=== PATIENT | female | born 1965 | race Caucasian/White ===

== ENCOUNTER → 2020-05-14 16:07 | Outpatient (CLI) | payer BC, SELFPAY ==
--- NOTE | ~2020-05-14 | MM_ITS ---
EXAMINATION: MM screening lana BI w carroll HISTORY: Screening mammogram TECHNIQUE: Craniocaudal and mediolateral oblique 3-D tomosynthesis images were obtained and synthetic 2-D images were generated. CAD analysis was submitted and interpreted. COMPARISON: 04/25/2019, 120 , 120 bilateral digital screening mammogram examinations BREAST PARENCHYMAL COMPOSITION: There are scattered areas of fibroglandular density. FINDINGS: Approximately 13 x 22 mm low density circumscribed opacity with halo sign in central inner lateral right breast, likely a benign cyst (MLO carroll image 30/85; craniocaudal carroll image 26/73). T here is no evidence of suspicious mass, calcification, or architectural distortion to suggest maligna ncy in either breast. There has been no suspicious interval change. IMPRESSION: 1. No mammographic evidence of malignancy. 2. Recommend routine screening mammography in one year. BI-RADS Category 2: Benign Reviewed, dictated and finalized at location A. T UTILITY PERSON
== END ==
PROVIDERS: Visit Provider Nurse Practitioner
DX: Z12.31 Encounter for screening mammogram for malignant neoplasm of breast (principal)
CPT/HCPCS: 77063; 77067

== ENCOUNTER → 2021-04-07 10:56 | Outpatient (CLI) | payer BC, SELFPAY ==
--- NOTE | ~2021-04-07 | DEXA_ITS ---
Bone Density Report Name: RICHARD TAMEZ Age: 55 Sex: Female Ethnicity: White Date of : 1965 Indication: postmenopausal; screening for osteoporosis; Referring Provider: JOY, ALEXUS Study: Bone densitometry was performed. Exam Date: April 07, 2021 Accession number: [id number] Bone Density: Region BMD T-score Z-score Classification AP Spine (L1-L4) 0.908 -1.3 -0.1 Osteopenia Femoral Neck (Left) 0.779 -0.6 0.5 Normal Total Hip (Left) 0.967 0.2 0.9 Normal Femoral Neck (Right) 0.749 -0.9 0.2 Normal Total Hip (Right) 0.908 -0.3 0.4 Normal Total Hip Mean 0.938 -0.1 0.7 Normal World Health Organization criteria for BMD impression classify patients as: Normal (T-score at or above -1.0), Osteopenia (T-score between -1.0 and -2.5), or Osteoporosis (T-score at or below -2.5). 10-year Fracture Risk(1): Major Osteoporotic Fracture 5.9% Hip Fracture 0.3% Reported Risk Factors: [place] (), Neck BMD=0.749, BMI=25.1 (1) FRAX(R) Version 3.08. Fracture probability calculated for an untreated patient. Fracture probability may be lower if the patient has received treatment. Previous Exams: Region Exam Age BMD T-score BMD Change BMD Change Date g/cm2 vs Baseline vs Previous AP Spine(L1-L4) 04/07/2021 55 0.908 -1.3 -0.075 -0.075 04/17/2017 51 0.983 -0.6 Total Hip(Left) 04/07/2021 55 0.967 0.2 -0.054 -0.054 04/17/2017 51 1.021 0.6 Total Hip(Right) 04/07/2021 55 0.908 -0.3 -0.005 -0.005 04/17/2017 51 0.913 -0.2 *Denotes significance at 95% confidence level, LSC for AP Spine = 0.022 g/cm2, LSC for Total Hip = 0.027 g/cm2 Clinical Information Provided by Patient: Has used the following medications: Vitamin D, Calcium Patient maximum height was 71.5 Menopause Age: 44 Drinks caffeinated beverages Onset of menses at age 16 Number of children 1 Impression: The patient has low bone mass, based on the Total Spine T-score. The patient has an estimated ten-year risk of hip fracture of 0.3% and an estimated ten-year risk of major fracture of 5.9%, based on the WHO FRAX algorithm. No significant bone loss was observed. Discussion: BONE DENSITY IS LOW AT ONE OR MORE SKELETAL SITES. This patient's lowest T-score is low at one or more skeletal sites. It meets the World Health Organization's (WHO) criteria for ?low bone mass? (T-score between -1.0 and -2.5).
== END ==
PROVIDERS: Visit Provider Nurse Practitioner
DX: Z78.0 Asymptomatic menopausal state (principal); M85.88 Other specified disorders of bone density and structure, other site
CPT/HCPCS: 77080

== ENCOUNTER → 2021-05-27 14:06 | Outpatient (CLI) | payer BC, SELFPAY ==
--- NOTE | ~2021-05-27 | MM_ITS ---
EXAMINATION: MM screening lana BI w carroll HISTORY: Screening mammogram TECHNIQUE: Craniocaudal and mediolateral oblique 3-D tomosynthesis images were obtained and synthetic 2-D images were generated. CAD analysis was submitted and interpreted. COMPARISON: May 14, 2020, April 25, 2019, April 19, 2018 bilateral screening mammogram exami nations BREAST PARENCHYMAL COMPOSITION: There are scattered areas of fibroglandular density. FINDINGS: There is a circumscribed approximately 14 x 22 mm low-density opacity with halo, consistent with a cyst in the lateral mid right breast at mid depth. Occasional bilateral benign calcifications. There is no evidence of suspicious mass, calcification, or architectural distortion to suggest malign brice in either breast. There has been no suspicious interval change. IMPRESSION: 1. No mammographic evidence of malignancy. 2. Recommend routine screening mammography in one year. BI-RADS Category 2: Benign finding(s). Reviewed, dictated and finalized at location A. E EXAMINER
== END ==
PROVIDERS: Visit Provider Nurse Practitioner
DX: Z12.31 Encounter for screening mammogram for malignant neoplasm of breast (principal)
CPT/HCPCS: 77063; 77067

== ENCOUNTER 2022-06-26 13:15 | Emergency (ER) | payer BC, SELFPAY ==
--- NOTE | 2022-06-26 13:25 | ED.URI ---
HPI - URI/Sore Throat General Chief Complaint: Upper Respiratory Infection Stated Complaint: Sore Throat,Congestion Time Seen by Provider: 06/26/22 13:25 Source: patient Mode of arrival: ambulatory Limitations: no limitations History of Present Illness HPI Narrative: Patient is a 56-year-old female that presents with sore throat, drainage since Monday along with lymph node swelling. Also having body aches it. No cough, congestion, fever, chills. Reports pain is an 8/10. Has taken Excedrin in Mucinex with little to no relief Related Data Home Medications Medication Instructions Recorded Confirmed ergocalciferol (vitamin D2) 1,250 50,000 unit PO WEEKLY 06/26/22 06/26/22 mcg (50,000 unit) capsule escitalopram oxalate 20 mg tablet 20 mg PO DAILY 06/26/22 06/26/22 triamterene 37.5 1 cap PO DAILY 06/26/22 06/26/22 mg-hydrochlorothiazide 25 mg capsule Allergies Allergy/AdvReac Type Severity Reaction Status Date / Time No Known Allergies Allergy Verified 06/26/22 13:23 Review of Systems Review of Systems: All systems reviewed & are unremarkable except as noted in HPI and below Constitutional: Constitutional: Reports body ache(s), Denies fever(s), Denies headache(s), Denies malaise and Denies weakness Eyes: Eyes: Denies loss of vision ENT: Denies otalgia, Denies headache(s), Reports nasal congestion, Reports neck pain, Denies sinus pain and Reports sore throat Cardiovascular: Cardiovascular: Denies chest pain, Denies irregular heart rhythm and Denies dyspnea Respiratory: Respiratory: Denies cough and Denies dyspnea Gastrointestinal: Gastrointestinal: Denies abdominal pain, Denies melena, Denies hematochezia, Denies diarrhea, Denies nausea and Denies vomiting Musculoskeletal: Musculoskeletal: Denies back pain, Denies myalgias and Denies arthralgias Integumentary/Breasts: Skin/Breast: Denies pruritus and Denies rash Neurologic: Denies headache(s), Denies loss of vision and Denies weakness Psychiatric: Psychiatric: Reports no additional psychiatric complaints PMFSH Comments At time of signature, agree with nursing past medical, surgical, social and family history. There is no relevant family history pertinent to the presenting complaint. Exam Const: General: cooperative, healthy appearing, comfortable, no acute distress and well nourished Nutritional Appearance: well nourished Orientation/consciousness: patient oriented x3 Limitations: no limitations HENMT: Head: normal to inspection, normocephalic and atraumatic Ears: hearing grossly normal bilaterally, external ears normal and TM's normal bilaterally Face/Nose/Sinus: Normal external nose present, Normal nares present, Normal nasal mucous membranes and turbinates present, Normal septum present, normal facial exam, sinuses nontender and face symmetric Face and sinus: normal facial exam, sinuses nontender and face symmetric Mouth: Yes Normal oral and palatal mucosa present, Yes lip normal and Yes moist mucous membranes Teeth and gingiva: dentition normal Throat: uvula midline, abnormal tonsil bilateral erythema and hypertrophy 2+, posterior oropharynx abnormal edema, erythema and exudates and postnasal drainage Eyes: General: appearance normal, both eyes and all related structures Alignment and Position: alignment normal and position normal Periorbital: periorbital findings normal Eyelids: eyelids normal Pupils: Equal, round and reactive pupils present Neck: Neck: normal visual inspection, full ROM, no lymphadenopathy and supple Chest: Chest palpation & inspection: normal inspection of the chest and normal palpation of entire chest wall Resp: Effort & Inspection: normal respiratory effort and able to speak in complete sentences Auscultation: clear to auscultation bilaterally, no crackles, no rales, no rhonchi and no wheezes Cardio: Rate: regular rate Rhythm: regular rhythm Heart sounds: S1 normal heart sound present and S2 normal heart sound presen
[2022-06-26 13:31] VITALS: BP 124/83; PULSE 72; RESP 18; TEMP 36.1; O2SAT 96
== END 2022-06-26 13:55 | disposition home or self-care (01) ==
PROVIDERS: Emergency Provider Nurse Practitioner Family
DX: J02.0 Streptococcal pharyngitis (principal)
CPT/HCPCS: 87880; 99213; G0463

== ENCOUNTER → 2022-08-18 10:32 | Outpatient (CLI) | payer BC, SELFPAY ==
--- NOTE | ~2022-08-18 | MM_ITS ---
EXAMINATION: MM screening [facility] BI w carroll HISTORY: Screening mammogram TECHNIQUE: Craniocaudal and mediolateral oblique 3-D tomosynthesis images were obtained and synthetic 2-D images were generated. CAD analysis was submitted and interpreted. COMPARISON: 05/27/2021, 05/14/2020, 04/25/2019 BREAST PARENCHYMAL COMPOSITION: There are scattered areas of fibroglandular density. FINDINGS: A chronic, obscured, low density mass in the middle third of the outer right breast is stab le on multiple prior examinations, consistent with a benign finding. No suspicious mass, calcificatio n, or architectural distortion are identified in either breast to suggest malignancy. There has been no suspicious interval change. IMPRESSION: 1. No mammographic evidence of malignancy. 2. Recommend routine screening mammography in one year. BI-RADS Category 2: Benign finding(s). Reviewed, dictated and finalized at location A.
== END ==
PROVIDERS: PCP Nurse Practitioner; Visit Provider Nurse Practitioner
DX: Z12.31 Encounter for screening mammogram for malignant neoplasm of breast (principal)
CPT/HCPCS: 77063; 77067

== ENCOUNTER 2023-08-21 10:43 | Outpatient (CLI) | payer BC, SELFPAY ==
--- NOTE | ~2023-08-21 | MM_ITS ---
EXAMINATION: MM screening lana BI w carroll HISTORY: Screening TECHNIQUE: Craniocaudal and mediolateral oblique 3-D tomosynthesis images were obtained and synthetic 2-D images were generated. CAD analysis was submitted and interpreted. COMPARISON: Comparison to multiple prior studies sequentially, with oldest reviewed study dated 04/17. BREAST PARENCHYMAL COMPOSITION: Not dense: There are scattered areas of fibroglandular density. FINDINGS: There is no evidence of suspicious mass, calcification, or architectural distortion to sugg est malignancy in either breast. There has been no suspicious interval change. IMPRESSION: 1. No mammographic evidence of malignancy. 2. Recommend routine screening mammography in one year. BI-RADS Category 1: Negative Reviewed, dictated and finalized at location A.
== END 2023-08-21 10:44 ==
PROVIDERS: Visit Provider Nurse Practitioner
DX: Z12.31 Encounter for screening mammogram for malignant neoplasm of breast (principal)
CPT/HCPCS: 77063; 77067

== ENCOUNTER 2024-01-26 07:24 | Outpatient (CLI) | payer BC, SELFPAY ==
--- NOTE | ~2024-01-26 | DEXA_ITS ---
Bone Density Report Name: RICHARD TAMEZ Age: 58 Sex: Female Ethnicity: White Date of : 1965 Indication: postmenopausal; screening for osteoporosis; Referring Provider: JOY, ALEXUS Study: Bone densitometry was performed. Exam Date: January 26, 2024 Accession number: [id number] Bone Density: Region BMD T-score Z-score Classification AP Spine(L1-L4) 0.882 -1.5 -0.2 Osteopenia Femoral Neck (Left) 0.749 -0.9 0.3 Normal Total Hip (Left) 0.918 -0.2 0.7 Normal Femoral Neck (Right) 0.717 -1.2 0.0 Osteopenia Total Hip (Right) 0.882 -0.5 0.4 Normal Total Hip Mean 0.900 -0.4 0.6 Normal World Health Organization criteria for BMD impression classify patients as: Normal (T-score at or above -1.0), Osteopenia (T-score between -1.0 and -2.5), or Osteoporosis (T-score at or below -2.5). 10-year Fracture Risk(1): Major Osteoporotic Fracture 6.3% Hip Fracture 0.4% Reported Risk Factors: [place] (), Neck BMD=0.717, BMI=20.8 (1) FRAX(R) Version 3.08. Fracture probability calculated for an untreated patient. Fracture probability may be lower if the patient has received treatment. Clinical Information Provided by Patient: Patient maximum height was 71 Menopause Age: 40 Drinks caffeinated beverages Onset of menses at age 13 Number of children 1 Impression: The patient has low bone mass, based on the Total Spine T-score. The patient has an estimated ten-year risk of hip fracture of 0.4% and an estimated ten-year risk of major fracture of 6.3%, based on the WHO FRAX algorithm. Discussion: BONE DENSITY IS LOW AT ONE OR MORE SKELETAL SITES. This patient's lowest T-score is low at one or more skeletal sites. It meets the World Health Organization's (WHO) criteria for ?low bone mass? (T-score between -1.0 and -2.5). The patient's 10-year risk of fracture as calculated by FRAX is less than the threshold where pharmacological therapy is recommended by the National Osteoporosis Foundation (NOF). However, all treatment decisions require clinical judgment and consideration of individual patient factors, including patient preferences, comorbidities, previous drug use, risk factors not captured in the FRAX model (e.g., frailty, falls, vitamin D deficiency, increased bone turnover, interval significant decline in bone density) and possible under or overestimation of fracture risk by FRAX. The patient should follow a healthful lifestyle (good nutrition with adequate calcium and vitamin D, and appropriate weight-bearing exercise). Follow-Up: Consider repeating this study in 2 to 3 years to reassess this patient's status, or sooner if there is some new clinical indication. Reported by: CARSON on 01/26/2024 7:53:00 AM. Reviewed, dictated and finalized at location A. [facility]PITALMckenzie
== END 2024-01-26 07:25 | disposition home or self-care (01) ==
LOC: ANHIMG 07:25
PROVIDERS: Visit Provider Nurse Practitioner
DX: M81.0 Age-related osteoporosis without current pathological fracture (principal); M85.80 Other specified disorders of bone density and structure, unspecified site
CPT/HCPCS: 77080

== ENCOUNTER 2025-01-20 09:15 | Outpatient (CLI) | payer BC, SELFPAY ==
--- NOTE | ~2025-01-20 | MM_ITS ---
EXAMINATION: MM screening lana BI w carroll HISTORY: Screening TECHNIQUE: Craniocaudal and mediolateral oblique 3-D tomosynthesis images were obtained and synthetic 2-D images were generated. CAD analysis was submitted and interpreted. COMPARISON: Comparison to multiple prior studies sequentially, with oldest reviewed study dated 04/19/2018. BREAST PARENCHYMAL COMPOSITION: Dense: The breasts are heterogeneously dense, which may obscure small masses FINDINGS: There are developing asymmetries in the upper outer quadrant of the right breast, middle third. The left breast is stable without evidence for malignancy. IMPRESSION: 1. Developing right breast asymmetries. 2. Additional mammographic views and possible breast ultrasound are recommended. BI-RADS Category 0: Incomplete: Needs additional imaging evaluation. Reviewed, dictated and finalized at location O. IMPRESSION: 1. Developing right breast asymmetries. 2. Additional mammographic views and possible breast ultrasound are recommended . BI-RADS Category 0: Incomplete: Needs additional imaging evaluation.
== END 2025-01-20 09:16 | disposition home or self-care (01) ==
PROVIDERS: Visit Provider Nurse Practitioner
DX: Z12.31 Encounter for screening mammogram for malignant neoplasm of breast (principal); R92.8 Other abnormal and inconclusive findings on diagnostic imaging of breast
CPT/HCPCS: 77063; 77067

== ENCOUNTER 2025-03-05 10:33 | Outpatient (CLI) | payer BC, SELFPAY ==
--- NOTE | ~2025-03-05 | MMUS_ITS ---
EXAMINATION: US breast RT limited, MM diagnostic lana RT w carroll HISTORY: Additional imaging TECHNIQUE: Craniocaudal and mediolateral oblique 3-D tomosynthesis images were obtained and synthetic 2-D images were generated. CAD analysis was submitted and interpreted. Grayscale sonography over the area(s) of interest with color Doppler if there is a finding. COMPARISON: January 20 BREAST PARENCHYMAL COMPOSITION: Dense: The breasts are heterogeneously dense MAMMOGRAM FINDINGS: 2 circumscribed masses persist in the 9-10 o'clock right breast. There are no suspicious calcifications. No unexplained architectural distortion is seen. There are no skin or nipple abnormalities identified. There is no adenopathy seen on the images submitted. ULTRASOUND FINDINGS: At 9:00, there is an ovoid, circumscribed, heterogeneous mass which contains some hypoechoic portions and some echogenic portions. The maximum dimension is 2.2 cm. It has a parallel orientation. At 10:00, there is a circumscribed, minimally heterogeneous, hypoechoic, ovoid mass with a maximum dimension of 8 mm and a parallel orientation. A similar such mass with maximum dimension of 11 mm is seen at 11:00. These account for the mammographic masses. IMPRESSION: Probably benign-appearing circumscribed masses accounting for the mammographic masses. 6 month follow-up ultrasound only through these regions is recommended. BI-RADS 3 - Probably benign - short-term follow-up is recommended. Reviewed, dictated and finalized at location B. PING AND RECEIVING IMPRESSION: Probably benign-appearing circumscribed masses accounting for the mammographic masses. 6 month follow-up ultrasound only through these regions is recommended. BI-RADS 3 - Probably benign - short-term follow-up is recommended.
--- OUTSIDE RECORDS SUMMARY | 2025-03-05 12:01 | XMS_ITS | Clinical Summary ---
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 017 Active valACYclovir (VALTREX) 1 gram tabletIndications:Annua l physical exam Take 1 Gram by mouth 1 time daily as needed. 017 Active aspirin (ECOTRIN EC) 81 mg Tablet, Delayed Release (E.C.)Indications:Pure hypercholesterolemia Take 81 mg by mouth daily. Active ergocalciferol (VITAMIN D2) 50,000 unit capsule every 7 days. 18/05 020 Active triamterene-hydroCHLORO thiazide (MAXZIDE 25) 37.5-25 mg tabletIndications:Essen tial hypertension Take 0.5 Tablets by mouth daily. 45 Tablet 3 025 Active tiZANidine (ZANAFLEX) 4 mg TabletIndications:Chron ic bilateral low back pain without sciatica TAKE 2 TABLETS NIGHTLY NEEDED FOR SPASM 180 Tablet 3 025 Active acetaminophen (TYLENOL) 325 mg tablet Take 650 mg by mouth every 6 hours as needed. 025 Active magnesium OXIDE (MAG-OX) 400 mg (241.3 mg magnesium) tablet Take 400 mg by mouth daily. 025 Active prochlorperazine maleate (COMPAZINE) 10 mg tablet Take 10 mg by mouth every 8 hours as needed. 025 Active riboflavin, vitamin B2, 100 mg Capsule Take 400 mg by mouth daily. Active tirzepatide, weight loss, (Zepbound) 5 mg/0.5 mL Pen InjectorIndications:Ess ential hypertension,Other hyperlipidemia,Overweig ht (BMI 25.0-29.9) Inject 0.5 mL (5 mg) by subcutaneous injection every 7 days. 6 mL 3 Active atorvastatin (LIPITOR) 40 mg tabletIndications:Other hyperlipidemia Take 1 Tablet (40 mg) by mouth daily at bedtime. 100 Tablet 3 Active tirzepatide, weight loss, (Zepbound) 5 mg/0.5 mL SolutionIndications:Ove rwmonicoght (BMI 25.0-29.9) Inject 0.5 mL (5 mg) by subcutaneous injection every 7 days. 2 mL 4 Active amLODIPine (NORVASC) 2.5 mg tablet Take 2.5 mg by mouth daily at bedtime. Active topiramate (TOPAMAX) 25 mg tablet Take 25 mg by mouth 2 times daily. Active tirzepatide, weight loss, (Zepbound) 5 mg/0.5 mL Pen InjectorIndications:Ess ential hypertension,Other hyperlipidemia,Overweig ht (BMI 25.0-29.9) Inject 5 mg by subcutaneous injection every 7 days. 6 mL 3 025 2024 Disconti nued(Reo rder) atorvastatin (LIPITOR) 40 mg tablet Take 40 mg by mouth daily at bedtime. 025 2024 Disconti nued(Reo rder) Active Problems Problem Noted Date Diagnosed Date Chronic migraine with aura w ithout status migrainosus, not intractable 02/26/2025 Pain and swelling of left knee 03/18/2021 Melanocytic nevi of lower extremity or hip 03/21 Situational mixed anxiety and depressive disorde r 06/18/2012 Other hyperlipidemia 07/13/2011 Essential hypertension 07/13/2011 History of basal cell carcinoma of skin 04/21/19 11 Encounters Date Type Department Care Team Description 02/26/2025 4:00 PM LUMPIA WRAPPER MAKER Video Visit [facility] Primary [facility] [address] [place] [address] Michael Holloway MD Acquired carotid-cavernous sinus fistula (Primary Dx); Essential hypertension; Chronic migraine with aura without status migrainosus, not intractable 02/19/2025 Telephone [facility] [place] [facility] [address] [address] Michael Holloway MD Medication Denial reason 02/18/2025 External Device Data STL ABSTRACTION Provider, Abstract [facility] [address] [place] [address] Michael Holloway MD Other hyperlipidemia (Primary Dx) 02/12/2025 4:00 PM LUMPIA WRAPPER MAKER [facility] [address] [place] [phone] Michael Holloway MD Acquired carotid-cavernous sinus fistula (Primary Dx); Overweight (BMI 25.0-29.9); Essential hypertension; Other hyperlipidemia 02/06/2025 Medication Prior Auth Encounter [facility] Prescription Management Dept [address] [place] [address] [place] [id number] Ashleigh Brooke, PHARMACIST 01/29/2025 External Device Data STL ABSTRACTION Provider, Abstract 01/29/2025 Telephone [facility] [place] [address] [place] [phone] Michael Holloway MD Medication Question 01/21/2025 Orders Only [facility] [place] [address] [facility] [address] [place] [phone] Provider, Abstract from Last 3 Months Immunizations Immunization Administration Dates Next Due (ADACEL/BOOSTRIX)(10 YR UP) TDAP VACCINE, 0.5ML, IM 08/22/2017,07/04/2007 (KALYN) COVID-19 VACCINE - EMERGENCY USE AUTHORIZATION, [id number](PF) 0.5 ML IM SUSP 06/09/2020 (Moderna Bivalent)(6 Mos-5 Y rs Booster) COVID-19 Vaccine - Emergency Use Authorization, MRNA (Pf) 10 Mcg/0.2 Ml Im Susp 12/02/2021 (PFIZER)(12 YR UP) COVID-19 VACCINE - EMERGENCY USE AUTHORIZATION, MRNA, [id number](PF) 30 MCG/0.3 ML IM SUSP 01/23/2021 (TWINRIX)(18 YRS UP) HEPATIT IS A AND HEPATITIS B VACCINE ADULT, 1 ML, IM 12/12/2023 INFLUENZA VACCINE QUADRIVALE NT 6 MOS UP CELL DERIVED PF IM 01/02/2020 INFLUENZA VACCINE QUADRIVALE NT 6 MOS UP PF IM 12/13/2018,12/11/2017 Influenza Seasonal Unspecifi ed Formulation IM 01/04/2023,01/20/2021,01/06/2020,2017 Influenza Seasonal Unspecifi ed Formulation PF IM 12/06/2024 Influenza, Unspecified Formulation 01/16/2020, Family History Medical History Relation Name Comments Diabetes Brothmarvin Gates Jr Heart Disease Father Herbert Hdz Hypertension Mother Mariaelena Hdz Other Mother Mariaelena Hdz Pace Maker Diabetes Sister Mariaelena Relation Name Status Comments Brother Kody Mariscal Alive Father Herbert Hdz (Age 80) Mother Mariaelena Hdz Alive Sister Mariaelena Alive Social History Tobacco Use Types Packs/Day Years Used Date Smoking Tobacco: Never Passive Smoke Exposure: Never Smokeless Tobacco: Never Tobacco Cessation:Counseling Given: Not Answered Alcohol Use Standard Drinks/Week Comments No 0 (1 standard drink = 0.6 oz pur e alcohol) Comments No Sex and Gender Information Value Date Recorded Sex Assigned at Not on file Legal Sex Female 2:57 AM LUMPIA WRAPPER MAKER Gender Identity Not on file Sexual Orientation Not on file 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 [employer] Not on file Not on file Not on file Last Filed Vital Signs Vital Sign Reading Time Taken Comments Blood Pressure 132/80 02/26/2025 3:50 PM LUMPIA WRAPPER MAKER Pulse 62 04/15/2024 1:21 PM LUMPIA WRAPPER MAKER Temperature 36.4 C (97.5 F) 04/15/2024 1:21 PM LUMPIA WRAPPER MAKER Respiratory Rate 14 08/16/2016 8:52 AM CDT Oxygen Saturation 95% 04/15/2024 1:21 PM LUMPIA WRAPPER MAKER Inhaled Oxygen Concentration - - Weight 70.3 kg (155 lb) 02/26/2025 3:50 PM LUMPIA WRAPPER MAKER Height 180.3 cm (5' 11) 02/26/2025 3:50 PM LUMPIA WRAPPER MAKER Body Mass Index 21.62 02/26/2025 3:50 PM LUMPIA WRAPPER MAKER Plan of Treatment Upcoming Encounters Date Type Department Care Team (Late st Contact Info) Description 03/05/2025 2:30 PM LUMPIA WRAPPER MAKER Office Visit [facility] [place] [address] [place] [address] [place] [address] [address] [place] [address] 04/21/2025 1:30 PM LUMPIA WRAPPER MAKER Office Visit [facility] [place] [address] [place] [address] [place] [address] [place] [address] Health Maintenance Due Date Last Done Comments HPV/Cotest (21-29) 1986 HPV/Cotest (30-65) 07/15/1995 FIT-DNA Q 3 years 2010 FIT/FOBT Q 1 year 2010 Flex Sig/CT Colonography Q 5 years 2010 ZOSTER VACCINE (1 of 2) 07/15/2015 HEPATITIS B VACCINES (2 of 3 - Hep B Twinrix 3-dose series) 01/09/2024 12/12/2023 CERVICAL CANCER SCREENING 04/27/2024 PAP SMEAR 04/27/2024 04/27/2021 (Prev iously completed) COVID-19 Vaccine (3 - 2024-2 6 season) 2024 12/02/2021, 01/23/2021, 06/09/2020 BREAST CANCER SCREENING 01/20/2026 01/21/20 25, 08/21/2023, 05/14/2020 DTAP/TDAP/TD VACCINES (3 - T d or Tdap) 08/23/2027 08/22/2017, 07/04/2007 COLORECTAL SCREENING 04/13/2033 04/13/2023, 01/02/20 16 Colorectal Cancer Screening 04/13/2033 Preventative Visit- Commercial Completed 0 04/15/2024, 04/11/2023, 04/12/2022, Additional history exists INFLUENZA VACCINE Completed 12/06/2024, , 12/02/2021, Additional history exists Procedures Procedure Name Priority Date/Time Associated Diagnosis Comments MAMMO SCREENING BILAT Routine 01/20/2025 8:23 AM CDT COLONOSCOPY REPORT Routine 04/13/2023 10 :48 AM LUMPIA WRAPPER MAKER from Last 3 Months or Most Recently Relevant to Health Maintenance Results * MAMMO SCREENING BILAT (01/20/2025 8:23 AM CDT) Anatomical Region Laterality Modality Breast Bilateral Mammography us Abstract Provider MAMMO ORDERABLES Final Result * COLONOSCOPY REPORT (04/13/2023 10:48 AM LUMPIA WRAPPER MAKER) us Abstract Provider GI PROCEDURE ORDERABLES Final Result Performing Organization Address City/State/[facility] Co de Phone Number [facility] CLIA# [id number] [address] from Last 3 Months or Most Recently Relevant to Health Maintenance Insurance [employer] BLUE ACCESS/TRUE BLUE PPO Care Teams 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
--- OUTSIDE RECORDS SUMMARY | 2025-03-05 12:01 | XMS_ITS | Encounter Summary ---
Author Organization [facility] Address [address] [facility] [place] [address] Care Team Providers Care Water Conservation Specialist Name Role Phone Michael Holloway MD Primary Care Pr ovider Reason for Visit * Reason Onset Date Comments MEDICATION REFILL 08/07/2023 Encounter Details Date Type Department Care Team (Late st Contact Info) Description 08/07/2023 Refill [facility] - Dermatology [address] [place] [phone] Jayjay Henson PA-C [address] [facility] [address] [place] [address] MEDICATION REFILL Social History Tobacco Use Types Packs/Day Years Used Date Smoking Tobacco: Never Smokeless Tobacco: Never Comments Unknown Sex and Gender Information Value Date Recorded Sex Assigned at Female 05/18/2021 2:52 PM BRIM WELT SEWING MACHINE OPERATOR Legal Sex Female 5:15 PM BRIM WELT SEWING MACHINE OPERATOR Gender Identity Female 05/18/2021 2:52 PM BRIM WELT SEWING MACHINE OPERATOR Sexual Orientation Straight 05/18/2021 2: 52 PM BRIM WELT SEWING MACHINE OPERATOR documented as of this encounter Miscellaneous Notes * Telephone Encounter - Jayjay Henson PA-C - 08/08/2023 8:29 AM CDT Refill given for HSV flares. Jayjay Henson PA-C * Telephone Encounter - Kelsea Connor - 08/07/2023 3:47 PM CDT LV: 12/09/22 NV: 12/13/23 RTC: 1year Kelsea Connor documented in this encounter Plan of Treatment Upcoming Encounters Date Type Department Care Team (Late st Contact Info) Description 06/26/2025 10:00 AM CDT Office Visit [facility] - Neurology [address] [place] [address], [place] [address] Lyly Gavin APRN-AUTOMOBILE RELOCATION ENGINEER [address] [place] [address] [address] [place] [address] 01/14/2026 1:10 PM CDT Office Visit [facility] - Dermatology [address] [place] [address], [place] [address] Tera Lees MD [address] [place] [address] [address] [place] [phone] documented as of this encounter Visit Diagnoses Diagnosis Herpesviral infection Herpes simplex without mention of complication documented in this encounter Care Teams Water Conservation Specialist Relationship Specialty [place] [address] [facility] [address] [place] [address] PCP - General 03/14/18 documented as of this encounter
--- OUTSIDE RECORDS SUMMARY | 2025-03-05 12:01 | XMS_ITS | Encounter Summary ---
Author Organization [facility] Address [address] [place] [address] Care Team Providers Care Biomed Tech Name Role Phone Michael Holloway MD Primary Care Pr ovider Reason for Visit * Reason Onset Date Comments MEDICATION REFILL 05/17/2023 Encounter Details Date Type Department Care Team (Late st Contact Info) Description 05/17/2023 Refill [facility] - Dermatology [address] [place] [address], [facility] [place] [address] Ashleigh Loyns PA [address] [place] [address] [place] [phone] MEDICATION REFILL Social History Tobacco Use Types Packs/Day Years Used Date Smoking Tobacco: Never Smokeless Tobacco: Never Comments Unknown Sex and Gender Information Value Date Recorded Sex Assigned at Female 05/18/2021 2:52 PM TAPEMAN Legal Sex Female 5:15 PM TAPEMAN Gender Identity Female 05/18/2021 2:52 PM TAPEMAN Sexual Orientation Straight 05/18/2021 2: 52 PM TAPEMAN documented as of this encounter Miscellaneous Notes * Telephone Encounter - Jayjay Henson PA-C - 05/18/2023 1:06 PM CST Refill approved for symptom relief and decreasing length of fever blister breakouts. This is to be taken only at sign of flare. Jayjay Henson PA-C MAN * Telephone Encounter - Kelsea Connor - 05/18/2023 9:52 AM CST LV: 12/09/22 NV: 12/13/23 RTC: 1 year Kelsea Connor MAN documented in this encounter Plan of Treatment Upcoming Encounters Date Type Department Care Team (Late st Contact Info) Description 06/26/2025 10:00 AM CDT Office Visit [facility] - Neurology [address] [place] [address], [place] [address] Lyly Gavin APRN-BOOTH CASHIER [address] [place] [address] [address] [place] [phone] 01/14/2026 1:10 PM CDT Office Visit [facility] - Dermatology [address] [place] [address], [place] [address] Tera Lees MD [address] [place] [address] [address] [place] [phone] documented as of this encounter Visit Diagnoses Diagnosis Herpesviral infection Herpes simplex without mention of complication documented in this encounter Care Teams Biomed Tech Relationship Specialty [place] [address] [facility] [address] [place] [address] PCP - General 03/14/18 documented as of this encounter
--- OUTSIDE RECORDS SUMMARY | 2025-03-05 12:01 | XMS_ITS | Encounter Summary ---
Author Organization [facility] Address [address] [place] [address] Care Team Providers Care Interline Clerk Name Role Phone Michael Holloway MD Primary Care Pr ovider Encounter Details Date Type Department Care Team (Late st Contact Info) Description 07/09/2003 Outpatient Historical [facility] Maternal and Ground Floor [address] [facility] [address] [facility] [place] [address] Bogdan Rangel MD NO ADDRESS ON FILE Social History Tobacco Use Types Packs/Day Years Used Date Smoking Tobacco: Never Assessed Comments Unknown Sex and Gender Information Value Date Recorded Sex Assigned at Not on file Legal Sex Female 2:57 AM WELT BUTTER HAND Gender Identity Not on file Sexual Orientation Not on file documented as of this encounter Plan of Treatment Upcoming Encounters Date Type Department Care Team (Late st Contact Info) Description 03/05/2025 2:30 PM WELT BUTTER HAND Office Visit [facility] Care Michaelle Santos [facility] [address] [place] [address] [place] [address] [address] [facility] [address] [place] [address] 04/21/2025 1:30 PM WELT BUTTER HAND Office Visit [facility] Care [place] [facility] [address] [place] [address] [place] [address] [facility] [address] [place] [address] documented as of this encounter Visit Diagnoses Not on filedocumented in this encounter Care Teams Interline Clerk Relationship Specialty Start [place] [address] [facility] [address] [place] [phone] PCP - General Internal Medicine 08/22/17 documented as of this encounter
--- OUTSIDE RECORDS SUMMARY | 2025-03-05 12:01 | XMS_ITS | Encounter Summary ---
Author Organization [facility] Address [address] [place] [address] Care Team Providers Care Noodle Maker Name Role Phone Michael Holloway MD Primary Care Pr ovider Reason for Visit * Reason Comments Medication Question Encounter Details Date Type Department Care Team (Late st Contact Info) Description 01/29/2025 Telephone [facility] Internal Medicine - [place] [address] [facility] [address] [place] [address] [place] [address] [facility] [address] [address] [facility] [place] [address] Medication Question Social History Tobacco Use Types Packs/Day Years Used Date Smoking Tobacco: Never Passive Smoke Exposure: Never Smokeless Tobacco: Never Alcohol Use Standard Drinks/Week Comments No 0 (1 standard drink = 0.6 oz pur e alcohol) Comments No Sex and Gender Information Value Date Recorded Sex Assigned at Not on file Legal Sex Female 2:57 AM CLAY PIGEON LOADER Gender Identity Not on file Sexual Orientation Not on file Occupation Industry Job Start Date Job End Date [employer] - [employer] Not on file Not on file Not on file documented as of this encounter Miscellaneous Notes * Telephone Encounter - Malou Rahman, A - 01/29/2025 1:46 PM CDT Copied from [facility] #[id number]. Topic: Medication Request >> Jan 29, 2025 1:44 PM Malou Haley wrote: Pharmacy Calling: [facility] Contact Name: [id number] - [place], [place] - [address] [facility] [address] [facility] [address] Pharmacy Number: [phone] Medication: Zepound. Patient is wanting to use coupon for medication and pharmacy has questions about Coding and BMI that will qualify her to be able to use the coupon Call Notes: Caller has questions concerning a prescription. Is the patient there at the pharmacy waiting to fill a prescription? No Is there an encounter open? No documented in this encounter Plan of Treatment Upcoming Encounters Date Type Department Care Team (Late st Contact Info) Description 03/05/2025 2:30 PM CLAY PIGEON LOADER Office Visit [facility] Primary Care [place] [facility] [address] [place] [address] [place] [id number] [place] [address] [address] [place] [address] 04/21/2025 1:30 PM CLAY PIGEON LOADER Office Visit [facility] [place] [facility] [address] [place] [address] [place] [address] [facility] [address] [place] [address] documented as of this encounter Visit Diagnoses Not on filedocumented in this encounter Care Teams Noodle Maker Relationship Specialty [place] [address] [facility] [address] [place] [address] PCP - General Internal Medicine 08/22/17 documented as of this encounter
--- OUTSIDE RECORDS SUMMARY | 2025-03-05 12:01 | XMS_ITS | Clinical Summary ---
Author Organization [facility] Address [address] [address] Care Team Providers Care Book Jacket Cover Machine Operator Name Role Phone Michael Holloway MD Primary Care Pr ovider Source Comments [facility],non-owned Affiliates and Associated Physician Practices is amultiple site organization consisting of ambulatory clinics and hospital sitesin [place], [place], [place] and [place]. This disclosure is being madepursuant to the Care Everywhere program and may not contain all information available regarding this patient. Last updated 17.[facility] Allergies No known active allergies Medications * Be aware that medications may not be up to date on this document. Alwaysverify current medications with the patient. escitalopram (LEXAPRO) 20 MG tablet 02/04/20 16 Active aspirin (ASPIRIN) 81 MG chew tablet Take 1 (one) tablet by mouth once daily Active tiZANidine (Zanaflex) 4 MG tablet Take 2 (two) tablets by mouth once daily as needed 05/26/19 22 Active valACYclovir (Valtrex) 1 GM tabletIndication s:Herpesviral infection TAKE 2 TABLETS BY MOUTH AT ONSET OF SYMPTOMS AND REPEAT DOSE IN 12 HOURS 8 tablet 6 01/16/20 25 Active acetaminophen (Tylenol) 325 MG tabletIndication s:Pain Take 2 (two) tablets by mouth every 6 hours as needed Maximum allowable Acetaminophen amount = 4 Grams (4000 mg) / 24 hours. Reasons: Pain 02/04/20 25 Active atorvastatin (Lipitor) 40 MG tablet Take 1 (one) tablet by mouth at bedtime 30 tablet 02/04/20 25 Active magnesium oxide (Mag-Ox) 400 MG tablet Take 1 (one) tablet by mouth once daily 90 tablet 3 02/05/20 25 Active Riboflavin 100 MG Take 4 (four) capsules by mouth once daily Please take 400mg (4 capsules) daily 90 capsule 3 02/05/20 25 Active prochlorperazine (Compazine) 10 MG tablet Take 1 (one) tablet by mouth every 8 hours as needed for Nausea/Vomiting 25 tablet 02/05/20 25 Active Zepbound 5 MG/0.5ML injection 5 (five) mg every 7 days (once a week) UNDER THE SKIN 12/11/19 25 Active topiramate (Topamax) 25 MG tabletIndication s:Intractable episodic tension-type headache Take 1 (one) tablet by mouth 2 times daily 180 tablet 4 02/27/20 25 Active amLODIPine (Norvasc) 2.5 MG tabletIndication s:Elevated BP without diagnosis of hypertension Take 1 (one) tablet by mouth at bedtime 90 tablet 4 02/27/20 25 Active naproxen (NAPROSYN) 500 MG tablet TK 1 T PO BID WC 0 12/30/19 18 025 Discontin ued(List Clean-Up) vitamin D, ergocalciferol, (Drisdol) 1.25 MG (95717 UT) capsule 10/27/19 22 025 Discontin ued(List Clean-Up) triamcinolone acetonide (Kenalog In Orabase) 0.1 % paste APPLY A THIN LAYER TO THE AFFECTED AREA THREE TIMES DAILY 07/14/19 21 025 Discontin ued(List Clean-Up) Mounjaro 5 MG/0.5ML injection ADMINISTER 5 MG UNDER THE SKIN EVERY 7 DAYS 025 Discontin ued(List Clean-Up) Active Problems Problem Noted Date Diagnosed Date 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 Acute nonintractable headache, unspecified heada ridge type 02/03/2025 Pain and swelling of left knee 03/18/2021 Multiple benign melanocytic nevi of upper extremity, lower extremity, and trunk 03/14/2018 Melanocytic nevi of lower extremity or hip 03/21 Melanocytic nevi of trunk 03/21/2017 Herpesviral infection 03/21/2017 HSV (herpes simplex virus) infection 03/21/2017 Situational mixed anxiety and depressive disorde r 06/18/2012 Essential hypertension 07/13/2011 Pure hypercholesterolemia 07/13/2011 History of basal cell carcinoma of skin 04/21/19 11 Resolved Problems Problem Noted Date Diagnosed Date Resolved Date Multiple benign nevi of uppe r extremity, lower extremity, and trunk 03/21/2017 12/07/2021 Encounters Date Type Department Care Team Description 02/26/2025 9:00 AM DIRECTOR ENTER[employer]ISE SALES Office Visit [facility] - Neurology [address] [place] [phone] Lyly Gavin APRN-ALEJANDRO Intractable episodic tension-type headache (Primary Dx); Elevated BP without diagnosis of hypertension 02/26/2025 Travel 02/20/2025 6:01 AM DIRECTOR [employer] - 02/20/2025 10:35 AM DIRECTOR EN[employer]ISE SALES Hospital Encounter [facility] [address] [place] [address] Nain Garsia MD Kaswan, Sumesh, MD [facility] Discharge Disposition: Home or Self Care 02/19/2025 Telephone [facility] [address] [place] [address] Aixa Mayorga, RN Appointment 02/07/2025 Telephone [facility] - Neurology [address] [place] [phone] Rosette Rodriguez LPN Order 02/05/2025 11:30 AM DIRECTOR [employer] Office Visit [facility] - Neurology [address] [place] [phone] Nain Garsia MD Carotid-cavernous fistula (HCC) (Primary Dx) 02/05/2025 Travel 02/03/2025 Ophth Exam [facility] - Ophthalmology [address] [place] [phone] Tito Tenorio MD 02/02/2025 11:08 PM DIRECTOR [employer] - 02/04/2025 12:54 PM DIRECTOR [employer]ISE SALES Hospital Encounter [facility] ACUTE [address] [place] [address] Trenton Morgan MD Edgell, Randall C, MD Neurology Discharge Disposition: Home or Self Care 02/02/2025 2:23 PM DIRECTOR [employer] - 02/02/2025 7:29 PM DIRECTOR EN[employer]ISE SALES Emergency [facility] [address] [place] [phone] Paul Flaherty MD Acute non intractable tension-type headache (Primary Dx); Elevated blood pressure reading Discharge Disposition: Home or Self Care 02/02/2025 Travel 01/15/2025 1:40 PM CDT Office Visit [facility] - Dermatology [address] [place] [address] Tera Lees MD Herpesviral infection (Primary Dx); Multiple benign melanocytic nevi of upper extremity, lower extremity, and trunk; Seborrheic keratoses 01/15/2025 Travel from Last 3 Months Immunizations Immunization Administration Dates Next Due INFLUENZA VACCINE 01/16/2020,12/01/2017 INFLUENZA VACCINE, QUADR. (F LUZONE; FLULAVAL; FLUARIX; AFLURIA QUADRIVALENT; 6MO+), 0.5 ML (IIV4) 12/13/2018 Family History Medical History Relation Name Comments Cancer - Skin, Non Melanoma Father Status: BCC Cancer - Skin, Non Melanoma Sister Status: BCC Asthma Neg Hx CVA Neg Hx Cancer - Breast Neg Hx Cancer - Other Neg Hx Cancer - Skin, Melanoma Neg Hx Eczema Neg Hx Hemophilia Neg Hx Psoriasis Neg Hx Relation Name Status Comments Father Sister Social History Tobacco Use Types Packs/Day Years Used Date Smoking Tobacco: Never Smokeless Tobacco: Never Alcohol Use Standard Drinks/Week Comments Yes 0 (1 standard drink = 0.6 oz pur e alcohol) occ AUDIT-C Answer Date Recorded Q1: How often do you have a drink containing alc ohol? 2-4 times a month 02/20/2025 Q2: How many drinks containi ng alcohol do you have on a typical day when you are drinking? 1 or 2 02/20/2025 Q3: How often do you have si x or more drinks on one occasion? Never 02/20/2025 Overall Financial Resource Strain (CARDIA) Answe r Date Recorded How hard is it for you to pa y for the very basics like food, housing, medical care, and heating? Not hard at all 02/03/2025 [facility] - Occupational Stress Questionnaire Answer Date Recorded Do you feel stress - tense, restless, nervous, or anxious, or unable to sleep at night because your mind is troubled all the time - these days? Not at all 02/03/2025 Hunger Vital Sign Answer Date Recorded Within the past 12 months, y ou worried that your food would run out before you got the money to buy more. Never true 02/04/20 25 Within the past 12 months, t he food you bought just didn't last and you didn't have money to get more. Never true 02/03/2025 PRAPARE - Transportation Answer Date Re corded In the past 12 months, has l ack of transportation kept you from medical appointments or from getting medications? No 06/2024 In the past 12 months, has l ack of transportation kept you from meetings, work, or from getting things needed for daily living? No 02/03/2025 Housing Stability Vital Sign Answer Malvin e Recorded In the last 12 months, was t here a time when you were not able to pay the mortgage or rent on time? No 02/03/2025 In the past 12 months, how m any times have you moved where you were living? 0 02/03/2025 At any time in the past 12 m [facility], were you homeless or living in a long term (including now)? No 02/03/2025 Comments No Sex and Gender Information Value Date Recorded Sex Assigned at Female 05/18/2021 2:52 PM DIRECTOR [employer] Legal Sex Female 5:15 PM DIRECTOR [employer] Gender Identity Female 05/18/2021 2:52 PM DIRECTOR [employer] Sexual Orientation Straight 05/18/2021 2: 52 PM DIRECTOR [employer] Last Filed Vital Signs Vital Sign Reading Time Taken Comments Blood Pressure 123/80 02/26/2025 9:03 AM DIRECTOR [employer] Pulse 65 02/26/2025 9:03 AM DIRECTOR [employer] Temperature 36.4 C (97.5 F) 02/20/2025 8:50 AM DIRECTOR [employer] Respiratory Rate 18 02/20/2025 10:27 AM DIRECTOR [employer] Oxygen Saturation 98% 02/26/2025 9:03 AM DIRECTOR [employer] Inhaled Oxygen Concentration 21% 02/20/2025 1 0:27 AM DIRECTOR [employer] Weight 69.9 kg (154 lb) 02/26/2025 9:03 AM DIRECTOR [employer] Height 180.3 cm (5' 11) 02/26/2025 9:03 AM DIRECTOR [employer] Body Mass Index 21.48 02/26/2025 9:03 AM DIRECTOR [employer] Plan of Treatment Upcoming Encounters Date Type Department Care Team (Late st Contact Info) Description 06/26/2025 10:00 AM CDT Office Visit [facility] - Neurology [address] [place] [address], [place] [phone] Lyly Gavin APRN-APARTMENT GROUNDSKEEPER [address] [place] [address] [address] [place] [phone] 01/14/2026 1:10 PM CDT Office Visit [facility] - Dermatology [address] [place] [address], [place] [phone] Tera Lees MD [address] [place] [address] [address] [place] [phone] Health Maintenance Due Date Last Done Comments COLOGUARD (AGES 45-75) - COLON CA SCREENING 1965 COLON MONITORING 1965 COLONOSCOPY - COLON CA SCREENING 1965 CT COLONOGRAPHY - COLON CA SCREENING 1965 Colorectal Cancer Screening 1965 FIT - COLON CA SCREENING 1965 FLEX SIG - COLON CA SCREENING 1965 HIV SCREENING 1980 HEPATITIS C SCREENING 07/10/1983 DTAP/TDAP/TD VACCINES (1 - Tdap) 1984 HEPATITIS B VACCINE (1 of 3 - 19+ 3-dose series) 1984 PAP SMEAR 1986 PNEUMOCOCCAL VACCINE 50+ (1 of 1 - PCV) 07/15/2015 ZOSTER VACCINE (1 of 2) 07/15/2015 DEPRESSION SCREENING 04/03/2024 COVID-19 VACCINE ( season) 2024 01/31/2024, 01/04/2023, 12/20/2021, Additional history exists MAMMOGRAM 01/20/2027 01/20/2025 INFLUENZA VACCINE Completed 12/06/2024, , 01/04/2023, Additional history exists HIB VACCINE Aged Out No longer eligi ble based on patient's age to complete this topic HPV VACCINE Aged Out No longer eligi ble based on patient's age to complete this topic MENINGOCOCCAL (Group B) VACCINE SHARED DECISION-MAKING Aged Out No longer eligible based on patient's age to complete this topic MENINGOCOCCAL GROUPS A/C/Y/W VACCINE Aged Out No longer eligible based on patient's age to complete this topic Procedures Procedure Name Priority Date/Time Associated Diagnosis Comments IR CAROTID CEREBRAL ANGIOGRAM Routine 02/20/2025 8:12 AM DIRECTOR [employer]ES Carotid-cavernous fistula (HCC) PT-INR STAT 02/20/2025 6:54 AM DIRECTOR [employer]ES Carotid-cavernous fistula (HCC) BASIC METABOLIC PANEL (CALCIUM TOTAL) STAT 02/20/2025 6:54 AM DIRECTOR [employer]ES Carotid-cavernous fistula (HCC) CBC W AUTO DIFFERENTIAL STAT 02/20/2025 6:54 AM DIRECTOR [employer]ES Carotid-cavernous fistula (HCC) GLUCOSE - POINT OF CARE Routine 02/04/2025 12:17 PM DIRECTOR [employer] SALES CARDIAC EKG ORDER 02/04/2025 11: 21 AM DIRECTOR EN[employer]ISE SALES GLUCOSE - POINT OF CARE Routine 02/04/2025 7:37 AM DIRECTOR EN[employer] SALES GLUCOSE - POINT OF CARE Routine 02/03/2025 9:11 PM DIRECTOR EN[employer]ISE SALES MRI BRAIN WWO CONTRAST STAT 7:45 PM DIRECTOR EN[employer]ISE SALES Carotid-cavernous fistula (HCC) TROPONIN-I HIGH SENSITIVE REFLEX 1HOUR Timed 02/03/2025 4:26 AM DIRECTOR ENTER[employer]ISE SALES EKG 12-LEAD Routine 02/03/2025 3:19 AM DIRECTOR EN[employer]ISE SALES Carotid-cavernous fistula (HCC) DIFFERENTIAL MANUAL STAT 02/03/2025 3 :12 AM DIRECTOR EN[employer]ISE SALES CBC W AUTO DIFFERENTIAL STAT 02/03/2025 3:12 AM DIRECTOR EN[employer]ISE SALES BASIC METABOLIC PANEL (CALCIUM TOTAL) STAT 02/03/2025 3:12 AM DIRECTOR [employer] SALES PHOSPHORUS BLOOD STAT 02/03/2025 3:12 AM DIRECTOR [employer] SALES MAGNESIUM BLOOD STAT 02/03/2025 3:12 AM DIRECTOR [employer] SAL[employer] PTT STAT 02/03/2025 3:12 AM DIRECTOR [employer] PT-INR STAT 02/03/2025 3:12 AM DIRECTOR [employer]ISE SALES LIPID PROFILE STAT 02/03/2025 3:12 AM DIRECTOR EN[employer]ISE SALES TROPONIN-I HIGH SENSITIVE BASELINE + 1HR STAT 02/03/2025 3:12 AM DIRECTOR [employer] SAL[employer] PT EVAL AND TREAT Routine 02/03/2025 2:5 7 AM DIRECTOR [employer] OT EVAL AND TREAT Routine 02/03/2025 2:5 [address] [employer] [address] [address] ANGIO BRAIN AND NECK STAT 02/02/2025 6:31 PM DIRECTOR [employer] SALES Acute non intractable tension-type headache CBC W AUTO DIFFERENTIAL STAT 02/02/2025 4:42 PM DIRECTOR [employer] SALES COMPREHENSIVE METABOLIC PANEL STAT 02/02/2025 4:42 PM DIRECTOR [employer] SAL[employer] from Last 3 Months Results * IR Carotid Cerebral Angiogram (02/20/2025 8:12 AM DIRECTOR EN[employer] SAL[employer]) Anatomical Region Laterality Modality Head X-Ray Angiograph y 02/20/2025 9:11 AM DIRECTOR EN[employer]ISE SALES Impressions 02/21/2025 9:46 AM DIRECTOR EN[employer]ISE SALES Impression: - No evidence of early venous phase suggestive of a carotid cavernous fistula. - Right VOCATIONAL TRAINER. I, Dr. Nain Garsia, was present and performed/supervised the entire procedure. Moderate sedation on this adult patient was ordered by me, administered intravenously in my presence, and monitored by the procedure nurse as an independent trained observer who was present throughout the procedure. The following parameters were monitored: oxygen saturation, heart rate, blood pressure, and response to care. For details on pre-moderate sedation and post-moderate sedation patient evaluation, please review the evaluation forms in [facility]. For details on monitored clinical parameters during the intra-service sedation time, please review the procedure nurse documentation in [facility]. > Dictated by Gandy Dancer INain MD have personally reviewed and interpreted this examination/study. > Interpreting Provider: Nain Garsia MD on 02/21/2025 9:46 AM Narrative 02/21/2025 9:46 AM DIRECTOR [employer] DATE/TIME OF EXAM: 02/20/2025 7:30 AM Procedure: Diagnostic Catheter Cerebral Angiogram. 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 She is here for catheter angiography to confirm CCF. Weed Controller: Dr. Garsia Manager Animal(s): Dayan Camargo MD; Luis Enrique Wing MD; Ayaan Tracey MD. Vessels: Ultrasound Guided Access of Radial Artery Left Subclavian Artery Angiogram: Cervical and Cerebral Left Common Carotid Artery Angiogram: Cervical and Cerebral Left Internal Carotid Artery Angiogram: Cerebral Right Common Carotid Artery Angiogram: Cervical and Cerebral Right Subclavian Artery Angiogram: Cervical and Cerebral Anesthesia: I, Dr. Garsia, was present for the entire duration of the procedure. Moderate sedation on this adult patient was ordered by the vulcanizing machine operator, administered intravenously in my presence, and monitored by the procedure nurse as an independent trained observer who was present throughout the procedure. The following parameters were monitored: oxygen saturation, heart rate, blood pressure, and response to care. Intra-service sedation start time was 0804 and end time was 08:40 during which I was present. Total physician intra-service sedation time was 36 minutes. For details on sedation patient evaluation, please review the evaluation in [facility]. For details on monitored clinical parameters during the intra-service sedation time, please review the procedure nurse documentation in [facility]. Procedural detail: The risks, benefits, and alternatives to procedure were discussed in detail with the patient and her family. These included but were not limited to the risk of blood loss, vessel injury, stroke, renal injury, and contrast allergy. The patient was brought to the biplane angiography suite where she underwent prep and drape procedures. Limited ultrasound of the right radial artery demonstrated a patent vessel. A ramos scale image was documented. The right radial artery was accessed using a micropuncture needle. Following a series of exchanges, a 5 Uruguayan 11 cm Glidesheath slender was placed in the radial artery. A radial angiogram was performed through the sheath. A spasmolytic cocktail containing 3000u heparin, 2.5mg verapamil, and 200mcg of nitroglycerin was administered. A 5 [place]ayan Glidecath Chavis 2 diagnostic catheter along with a 0.035 Glidewire was navigated into the aortic arch. After forming the Chavis catheter this was used to select the brachiocephalic trunk followed by the right common carotid artery and a cervical and cerebral angiogram was obtained. The catheter was returned to the arch and used to select the left common carotid artery and a cervical and cerebral angiogram was obtained. The catheter was then used to select the left internal carotid artery and a cerebral angiogram was obtained. The catheter was returned to the arch and used to select the left subclavian artery and a cervical and cerebral angiogram was obtained. The catheter was returned to the brachiocephalic trunk and used to select the right subclavian artery and a cervical and cerebral angiogram was obtained. All catheters and sheaths were removed from the arterial system. Hemostasis was achieved using a Terumo radial band closure device. Hemostasis was immediate at the end of the closure procedure. The right radial artery pulse was palpable at the end of the closure procedure. The patient tolerated the procedure without immediate complications. She was returned to the recovery area in hemodynamically stable condition and neurologically unchanged. The estimated blood loss was less than 10 mL. A total of 19 minutes of fluoroscopic time and 50 ml of Isovue-300 contrast were utilized for the study. Findings: - Left subclavian artery angiogram: Cervical: It reveals a subclavian artery with normal course ans caliber. The vertebral artery origin, V1-V2- V3 segments have a normal course and caliber. There is visualization of the other branches of subclavian artery such as thyrocervical trunk, costocervical trunk and internal thoracic artery which have a normal caliber. Cerebral: It reveals a V4 segment and vertebrobasilar junction that are normal in course and caliber. The major vessels to the cerebellum are normal in course and caliber. The basilar artery and left posterior cerebral artery are also normal in course and caliber. The venous phase shows a normal drainage. - Left Internal carotid artery angiogram: Cervical: It reveals at origin at C3-C4 level. There is mild tortuosity in the cervical segment but its caliber is normal. Cerebral: There is a mild decrease caliber of the petrous segment, there rest of the intracranial segment have a normal normal course and caliber. The middle cerebral artery has a short M1 segment, the rest of its segments are normal course and caliber .The anterior cerebral artery is normal in course and caliber, there is filling of contralateral JOSSELIN by the anterior communicating artery. The venous phase shows a normal drainage. - Left External carotid artery: Cervical: It reveals a normal origin, the main trunk has a normal course and caliber. There is visualization of its branches (superior thyroid, lingual, facial, IMAX, occipital, STA), they have a normal course and caliber. Cerebral: There is visualization of distal branches of the IMAX, STA and occipital. - Right common carotid artery angiogram: Cervical angiogram: It reveals a normal carotid bifurcation. The visualized branches of the external carotid artery are normal in course and caliber. The cervical segment of the internal carotid artery has a mild tortuosity, the caliber is normal. Cerebral: It reveals a mild tortuosity a normal caliber of the intracranial segments of the internal carotid artery, there is visualization of a large posterior communicating artery that supplies the posterior circulation suggestive of a right VOCATIONAL TRAINER configuration. The middle cerebral artery has a normal course and caliber .The anterior cerebral artery is normal in course and caliber. The venous phase shows a normal venous drainage. - Right subclavian artery angiogram: Cervical: It reveals a subclavian artery with normal course ans caliber. The vertebral artery origin, V1-V2- V3 segments have a normal course and caliber. There is visualization of the other branches of subclavian artery such as thyrocervical trunk, costocervical trunk and internal thoracic artery which have a normal caliber. Cerebral: It reveals a V4 segment and vertebrobasilar junction that are normal in course and caliber. There is visualization of PICA. The basilar artery has a normal course and caliber, but there is not clear visualization of AICA and SCA. There is aplasia of right P1 segment suggestive of VOCATIONAL TRAINER. The venous phase shows a normal drainage. Procedure Note Nain Garsia MD - 02/21/2025 DATE/TIME OF EXAM: 02/20/2025 7:30 AM Procedure: Diagnostic Catheter Cerebral Angiogram. Comparison Study: CTA brain and neck from 02/02/2025 History: 59 year old right handed woman who presents for the evaluation ofpossible left carotid cavernous fistula that was found in CTA of brain. She is here for catheter angiography to confirm CCF. Weed Controller: Dr. Garsia Manager Animal(s): Dayan Camargo MD; Luis Enrique Wing MD; Ayaan Tracey MD. Vessels: Ultrasound Guided Access of Radial Artery Left Subclavian Artery Angiogram: Cervical and Cerebral Left Common Carotid Artery Angiogram: Cervical and Cerebral Left Internal Carotid Artery Angiogram: Cerebral Right Common Carotid Artery Angiogram: Cervical and Cerebral Right Subclavian Artery Angiogram: Cervical and Cerebral Anesthesia: I, Dr. Garsia, was present for the entire duration of the procedure. Moderate sedation on this adult patient was ordered by the vulcanizing machine operator, administered intravenously in my presence, and monitored by theprocedure nurse as an independent trained observer who was present throughout the procedure. The following parameters were monitored: oxygen saturation, heart rate, blood pressure, and response to care. Intra-service sedation start time was 0804 and end time was 08:40 during which I was present. Total physician intra-service sedation time was 36 minutes. For detailson sedation patient evaluation, please review the evaluation in [facility]. For details on monitored clinical parameters during the intra-servicesedation time, please review the procedure nurse documentation in [facility]. Procedural detail: The risks, benefits, and alternatives to procedure were discussed indetail with the patient and her family. These included but were not limited to the risk of blood loss, vessel injury, stroke, renal injury, andcontrast allergy. The patient was brought to the biplane angiography suite whereshe underwent prep and drape procedures. Limited ultrasound of the right radial artery demonstrated a patent vessel. A ramos scale image was documented. The right radial artery was accessed using a micropuncture needle. Following a series of exchanges, a 5 [place]ayan 11 cm Glidesheath slender was placed in the radial artery. A radial angiogram wasperformed through the sheath. A spasmolytic cocktail containing 3000u heparin,2.5mg verapamil, and 200mcg of nitroglycerin was administered. A 5 [place] Glidecath Chavis 2 diagnostic catheter along with a 0.035 Glidewire was navigated into the aortic arch. After forming the Chavis catheter this was used to select the brachiocephalic trunk followed by the right common carotid artery and a cervical and cerebral angiogram was obtained. The catheter was returnedto the arch and used to select the left common carotid artery and acervical and cerebral angiogram was obtained. The catheter was then used toselect the left internal carotid artery and a cerebral angiogram was obtained.The catheter was returned to the arch and used to select the left subclavian artery and a cervical and cerebral angiogram was obtained. The catheterwas returned to the brachiocephalic trunk and used to select the right subclavian artery and a cervical and cerebral angiogram was obtained. All catheters and sheaths were removed from the arterial system.Hemostasis was achieved using a Terumo radial band closure device. Hemostasis was immediate at the end of the closure procedure. The right radial artery pulse was palpable at the end of the closure procedure. The patient tolerated the procedure without immediate complications. She was returned to the recovery area in hemodynamically stable conditionand neurologically unchanged. The estimated blood loss was less than 10 mL. A total of 19 minutes of fluoroscopic time and 50 ml of Isovue-300 contrast were utilized for the study. Findings: - Left subclavian artery angiogram: Cervical: It reveals a subclavian artery with normal course ans caliber. The vertebral artery origin, V1-V2- V3 segments have a normal course and caliber. There is visualization of the other branches of subclavianartery such as thyrocervical trunk, costocervical trunk and internal thoracic artery which have a normal caliber. Cerebral: It reveals a V4 segment and vertebrobasilar junction that are normal in course and caliber. The major vessels to the cerebellum are normal in course and caliber. The basilar artery and left posterior cerebral artery are also normal in course and caliber. The venous phase shows a normal drainage. - Left Internal carotid artery angiogram: Cervical: It reveals at origin at C3-C4 level. There is mild tortuosityin the cervical segment but its caliber is normal. Cerebral: There is a mild decrease caliber of the petrous segment, there rest of the intracranial segment have a normal normal course andcaliber. The middle cerebral artery has a short M1 segment, the rest of itssegments are normal course and caliber .The anterior cerebral artery is normal in course and caliber, there is filling of contralateral JOSSELIN by theanterior communicating artery. The venous phase shows a normal drainage. - Left External carotid artery: Cervical: It reveals a normal origin, the main trunk has a normal course and caliber. There is visualization of its branches (superior thyroid, lingual, facial, IMAX, occipital, STA), they have a normal course and caliber. Cerebral: There is visualization of distal branches of the IMAX, STA and occipital. - Right common carotid artery angiogram: Cervical angiogram: It reveals a normal carotid bifurcation. The visualized branches of the external carotid artery are normal in courseand caliber. The cervical segment of the internal carotid artery has a mild tortuosity, the caliber is normal. Cerebral: It reveals a mild tortuosity a normal caliber of the intracranial segments of the internal carotid artery, there is visualization of a large posterior communicating artery that suppliesthe posterior circulation suggestive of a right VOCATIONAL TRAINER configuration. The middle cerebral artery has a normal course and caliber .The anterior cerebral artery is normal in course and caliber. The venous phase showsa normal venous drainage. - Right subclavian artery angiogram: Cervical: It reveals a subclavian artery with normal course ans caliber. The vertebral artery origin, V1-V2- V3 segments have a normal course and caliber. There is visualization of the other branches of subclavianartery such as thyrocervical trunk, costocervical trunk and internal thoracic artery which have a normal caliber. Cerebral: It reveals a V4 segment and vertebrobasilar junction that are normal in course and caliber. There is visualization of PICA. Thebasilar artery has a normal course and caliber, but there is not clear visualization of AICA and SCA. There is aplasia of right P1 segment suggestive of VOCATIONAL TRAINER. The venous phase shows a normal drainage. Impression: - No evidence of early venous phase suggestive of a carotid cavernous fistula. - Right VOCATIONAL TRAINER. I, Dr. Nain Garsia, was present and performed/supervised theentire procedure. Moderate sedation on this adult patient was ordered by me, administered intravenously in my presence, and monitored by theprocedure nurse as an independent trained observer who was present throughout the procedure. The following parameters were monitored: oxygen saturation, heart rate, blood pressure, and response to care. For details on pre-moderate sedation and post-moderate sedation patient evaluation,please review the evaluation forms in [facility]. For details on monitored clinical parameters during the intra-service sedation time, please review the procedure nurse documentation in [facility]. > Dictated by Gandy Dancer I, Nain Garsia MD have personally reviewed and interpreted this examination/study. > Interpreting Provider: Nain Garsia MD on 02/21/2025 9:46 AM us Nain Garsia MD IR ORDERABLES Final Resul t * PT-INR (02/20/2025 6:54 AM [employer]) Only the most recent of2 resultswithin the time period is included. PT 14.4 12.1 - 14.8 Seconds 02/20/2025 7:21 AM [employer] [facility] INR 1.1 See Comment 02/20/2025 7:21 AM [employer] [facility] Comment:The suggested therap eutic range for standard coumadin (warfarin) therapy is an INR of 2.0-3.0. For high-risk patients (Mechanical Mitral Valve Prosthesis, etc.), the suggested prophylactic therapeutic range is an INR of 2.5-3.5. Blood BLOOD SPECIMEN / Unknown Venipuncture / Unknown 02/20/2025 6:54 AM [employer] 02/20/2025 6:57 AM [employer] us Nain Garsia MD LAB - COAGULATION ORDERABLE S Final Result [facility] [address] [address], [facility] [phone] * (ABNORMAL) CBC W AUTO DIFFERENTIAL (02/20/2025 6:54 AM [employer]) Only the most recent of3 resultswithin the time period is included. WBC 2.8(L) 4.0 - 10.7 x10E9/L 02/20/2025 7:21 AM [facility] RBC Count 4.82 3.90 - 5.20 x10E12/L 02/20/2025 7:21 AM [facility] Hemoglobin 13.6 11.9 - 15.8 g/dL 02/20/2025 7:21 AM [facility] Hematocrit 39.2 34.8 - 46.1 % 02/20/2025 7:21 AM [facility] MCV 81.3 80.0 - 98.0 fL 02/20/2025 7:21 AM [facility] MCH 28.2 26.7 - 33.6 pg 02/20/2025 7:21 AM [facility] MCHC 34.7 31.7 - 36.3 g/dL 02/20/2025 7:21 AM [facility] RDW-CV 13.8 11.3 - 14.8 % 02/20/2025 7:21 AM [facility] Platelet Count 157 150 - 420 x10E9/L 02/20/2025 7:21 AM [facility] MPV 11.2 7.8 - 11.4 fL 02/20/2025 7:21 AM [facility] Neutrophil % 38.3(L) 41.0 - 74.0 % 02/20/2025 7:21 AM [facility] Lymphocyte % 51.3(H) 17.0 - 47.0 % 02/20/2025 7:21 AM [facility] Monocyte % 8.6 3.0 - 11.0 % 02/20/2025 7:21 AM [facility] Eosinophil % 0.7 0.0 - 7.0 % 02/20/2025 7:21 AM [facility] Basophil % 0.7 0.0 - 1.6 % 02/20/2025 7:21 AM [facility] Immature Granulocytes % 0.4 0.0 - 1.0 % 02/20/2025 7:21 AM [facility] Neutrophil Absolute 1.07(L) 1.60 - 7.50 x10E9/L 02/20/2025 7:21 AM [facility] Lymphocyte Absolute 1.43 1.00 - 4.40 x10E9/L 02/20/2025 7:21 AM [facility] Monocyte Absolute 0.24 0.15 - 1.00 x10E9/L 02/20/2025 7:21 AM [facility] Eosinophil Absolute 0.02 0.00 - 0.60 x10E9/L 02/20/2025 7:21 AM [facility] Basophil Absolute 0.02 0.00 - 0.13 x10E9/L 02/20/2025 7:21 AM [facility] Blood BLOOD SPECIMEN / Unknown Venipuncture / Unknown 02/20/2025 6:54 AM [employer] 02/20/2025 7:00 AM [facility] us Nain Garsia MD LAB - HEMATOLOGY ORDERABLES Final Result Performing Organization Address City/State/[facility] Co de Phone Number [address] [address] [phone] * (ABNORMAL) BASIC METABOLIC PANEL (CALCIUM TOTAL) (02/20/2025 6:54 AM [facility]) Only the most recent of2 resultswithin the time period is included. BUN 21 7 - 26 mg/dL 02/20/2025 7:34 AM [facility] Creatinine 0.92 0.56 - 0.96 mg/dL 02/20/2025 7:34 AM [facility] Sodium 143 136 - 145 mmol/L 02/20/2025 7:34 AM [facility] Potassium 3.7 3.5 - 4.5 mmol/L 02/20/2025 7:34 AM [facility] Chloride 108(H) 98 - 107 mmol/L 02/20/2025 7:34 AM [facility] CO2 29 22 - 29 mmol/L 02/20/2025 7:34 AM [facility] Glucose 86 70 - 99 mg/dL 02/20/2025 7:34 AM [facility] Calcium 9.7 8.4 - 10.2 mg/dL 02/20/2025 7:34 AM [facility] Anion Gap 6 6 - 16 02/20/2025 7:34 AM [facility] BUN/Creatinine Ratio 23 7 - 23 02/20/2025 7:34 AM [facility] Osmolality Calculated 298(H) 275 - 295 mOsm/kg 02/20/2025 7:34 AM [facility] eGFR by CKD-EPI 72(L) >=90 mL/min/1.7 3 m2 02/20/2025 7:34 AM [facility] Comment:Estimated Glomerular Filtration Rate (eGFR) calculated using the CKD-EPI Creatinine Equation (2020), per the National Kidney Foundation and [place] [employer] Neph[employer] recommendations. Blood BLOOD SPECIMEN / Unknown Venipuncture / Unknown 02/20/2025 6:54 AM [employer] 02/20/2025 7:00 AM [employer] us Nain Garsia MD LAB - CHEMISTRY ORDERABLES Final Result Performing Organization Address City/[facility]/ZIP Co de Phone Number [address] [address], [place] [phone] * (ABNORMAL) GLUCOSE - POINT OF CARE (02/04/2025 12:17 PM [employer]) Only the most recent of3 resultswithin the time period is included. Glucose WB/POC 139(H) 70 - 99 mg/dL 02/04/2025 12:18 PM [facility] Specimen Type Arterial/C apillary 02/04/2025 12:18 PM [facility] Blood BLOOD SPECIMEN / Unknown 02/04/2025 12:17 PM [employer] 02/04/2025 12:18 PM [employer] us Guanako Modi MD LAB - POINT OF CARE ORDERABL ES Final Result [address] [address], [place] [phone] * CARDIAC EKG ORDER (02/04/2025 11:21 AM [employer]) Narrative 02/04/2025 11:21 AM [employer] Ordered by an unspecified provider. us Scanned Document C[facility] SERVICES ORDERABLES Fin al Result * MRI Brain Wwo Contrast (02/03/2025 7:45 PM [employer]) Anatomical Region Laterality Modality Head Magnetic Resonan ce 02/03/2025 10:3 8 PM [employer] Impressions 02/04/2025 9:09 AM [employer] IMPRESSION: 1. No acute infarct, intracranial mass lesion, or hemorrhage. 2. Asymmetric fullness of the left cavernous sinus is suggested on the single axial sequence. Cannot be clearly confirmed when independent reconstructions were made and reviewed. Therefore, no clear evidence of cavernous sinus fistula on this exam. If this diagnosis continues to be suspected, further noninvasive evaluation with MR angiography of the head can be performed using a noncontrast axial [id number] sequence and axial TWIST postcontrast images. Alternatively, conventional cerebral angiography can be obtained for further evaluation. The report is dictated by Ken Keller MD (cardiac cath lab radiology technologist) > Dictated by Ken Keller MD 02/03/2025 10:38 PM > Dictated by Gandy Dancer I, Ciera Lamb MD have personally reviewed and interpreted this examination/study. 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 EXAMINATION: Magnetic resonance imaging (MRI) of the brain without and with contrast CONTRAST: GADOBUTROL 1 MMOL/ML IV SSM SO:7 mL TECHNIQUE: MRI of the brain was performed prior to and following the uneventful administration of 7 mL intravenous gadolinium contrast according to standard protocol. COMPARISON: CTA head and neck 02/02/2025 FINDINGS: No evidence of acute or chronic hemorrhage is identified. No evidence of acute cerebral infarction is seen. There is mild cerebral volume loss with associated ex vacuo ventricular dilatation. No mass effect or midline shift is seen. Periventricular white matter FLAIR hyperintensities likely represent sequelae of chronic small vessel ischemic disease. A small dilated perivascular space is seen in the left basal ganglia, a normal variant. No enhancing lesions are identified. The corpus callosum and sella appear normal. An arachnoid cyst in the midline posterior fossa with internal septations, a finding which is usually of no clinical significance. Otherwise, the posterior fossa, brainstem, and craniocervical junction appear normal. Subtle asymmetric left-sided fullness of the cavernous sinus seen on the axial MPRAGE postcontrast sequence is not clearly seen when independent reconstructions of this sequence are made and reviewed. Again, there is no evidence of enlargement or dilation of the left superior ophthalmic vein. Aside from trace effusions in the bilateral mastoid sinuses, the visualized portions of the orbits, paranasal sinuses, and mastoids appear normal. There is normal contrast enhancement in the intracranial arteries and dural venous sinuses. The calvarium and visualized cervical spine appear normal. 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 EXAMINATION: Magnetic resonance imaging (MRI) of the brain without andwith contrast CONTRAST: GADOBUTROL 1 MMOL/ML IV SSM SO:7 mL TECHNIQUE: MRI of the brain was performed prior to and following the uneventful administration of 7 mL intravenous gadolinium contrastaccording to standard protocol. COMPARISON: CTA head and neck 02/02/2025 FINDINGS: No evidence of acute or chronic hemorrhage is identified. No evidence of acute cerebral infarction is seen. There is mild cerebral volume loss with associated ex vacuo ventricular dilatation. No mass effect or midline shift is seen. Periventricular white matter FLAIR hyperintensities likely represent sequelae of chronic small vessel ischemic disease. A small dilated perivascular space is seen in the left basal ganglia, a normal variant. No enhancing lesions are identified. The corpus callosum and sella appear normal. An arachnoid cyst in the midline posterior fossa with internalseptations, a finding which is usually of no clinical significance. Otherwise, the posterior fossa, brainstem, and craniocervical junction appear normal. Subtle asymmetric left-sided fullness of the cavernous sinus seen on the axial MPRAGE postcontrast sequence is not clearly seen when independent reconstructions of this sequence are made and reviewed. Again, there isno evidence of enlargement or dilation of the left superior ophthalmicvein. Aside from trace effusions in the bilateral mastoid sinuses, thevisualized portions of the orbits, paranasal sinuses, and mastoids appear normal. There is normal contrast enhancement in the intracranial arteries anddural venous sinuses. The calvarium and visualized cervical spine appear normal. IMPRESSION: 1. No acute infarct, intracranial mass lesion, or hemorrhage. 2. Asymmetric fullness of the left cavernous sinus is suggested on the single axial sequence. Cannot be clearly confirmed when independent reconstructions were made and reviewed. Therefore, no clear evidence of cavernous sinus fistula on this exam. If this diagnosis continues to be suspected, further noninvasive evaluation with MR angiography of thehead can be performed using a noncontrast axial [id number] sequence and axial TWIST postcontrast images. Alternatively, conventional cerebral angiography can be obtained for further evaluation. The report is dictated by Ken Keller MD (cardiac cath lab radiology technologist) > Dictated by Ken Keller MD 02/03/2025 10:38 PM > Dictated by Gandy Dancer I, Ciera Lamb MD have personally reviewed and interpreted this examination/study. > Interpreting Provider: Ciera Lamb MD on 02/04/2025 9:09 AM Guanako Modi MD MR ORDERABLES Final Result * TROPONIN-I HIGH SENSITIVE REFLEX 1HOUR (02/03/2025 4:26 AM [employer]) Troponin I High Sensitive <3 <=14 ng/L 02/03/2025 5:07 AM [employer] [facility] Delta Troponin I HS 02/03/2025 5:07 AM [employer] [facility] Comment:Result exceeds linea rity range. A delta value is unable to be calculated. Blood BLOOD SPECIMEN / Unknown Venipuncture / Unknown 02/03/2025 4:26 AM [employer] 02/03/2025 4:35 AM [employer] Trenton Morgan MD LAB - CHEMISTRY ORDERABLES F inal Result [facility] [address] [place] [address], [facility] [phone] * EKG 12-Lead (02/03/2025 3:19 AM [employer]) Pathologist [facility] Ventricular Rate 59 BPM [facility] Atrial Rate 59 BPM [facility] P-R Interval 206 ms [facility] QRS Duration ms 106 ms [facility] Q-T Interval ms 470 ms [facility] QTC Calculation (Bezet) 465 ms [facility] Calculated P [place] 49 degrees [facility] Calculated R [place] 16 degrees [facility] Calculated T [place] 41 degrees [facility] Interpretation EKG SINUS BRADYCARDIA INCOMPLETE RIGHT BUNDLE BRANCH BLOCK BORDERLINE ECG NO PREVIOUS ECGS AVAILABLE Confirmed by ANTONETTE TRIPLETT DO ([id number]) on 02/04/2025 3:57:32 PM [facility] 02/03/2025 3:19 AM [employer] 02/04/2025 3:57 PM [employer] Trenton Morgan MD ECG ORDERABLES Edited Resul t - Final Performing Organization Address [facility] de Phone Number [facility] * TROPONIN-I HIGH SENSITIVE BASELINE + 1HR (02/03/2025 3:12 AM [employer]) [facility] Troponin I High Sensitive <3 <=14 ng/L 02/03/2025 3:54 AM [facility] Blood BLOOD SPECIMEN / Unknown Venipuncture / Unknown 02/03/2025 3:12 AM [employer] 02/03/2025 3:17 AM [employer] Trenton Morgan MD LAB - CHEMISTRY ORDERABLES F inal Result Performing Organization Address [facility] Co de Phone Number [facility] [address] [place] [address], [facility] [phone] * PTT (02/03/2025 3:12 AM [employer]) [facility] APTT 26.3 23.0 - 38.4 Seconds 02/03/2025 3:43 AM [facility] Comment:Suggested therapeuti c range for full dose I.V. unfractionated heparin therapy for venous thromboembolism is 71 to 109 seconds. Blood BLOOD SPECIMEN / Unknown Venipuncture / Unknown 02/03/2025 3:12 AM [employer] 02/03/2025 3:17 AM [employer] Trenton Morgan MD LAB - COAGULATION ORDERABLES Final Result Performing Organization Address [facility]/State/ZIP Co de Phone Number [facility] [address] [place] [address], [facility] [phone] * (ABNORMAL) DIFFERENTIAL MANUAL (02/03/2025 3:12 AM [employer]) Neutrophil % 45 41 - 74 % 02/03/2025 4:11 AM [facility] Lymphocyte % 50(H) 17 - 47 % 02/03/2025 4:11 AM [facility] Comment:Reactive Lymphocytes present Monocyte % 3 3 - 11 % 02/03/2025 4:11 AM [facility] Eosinophil % 1 0 - 7 % 02/03/2025 4:11 AM [facility] Basophil % 1 0 - 2 % 02/03/2025 4:11 AM [facility] Neutrophil Absolute 1.17(L) 1.60 - 7.50 x10E9/L 02/03/2025 4:11 AM [facility] Lymphocyte Absolute 1.30 1.00 - 4.40 x10E9/L 02/03/2025 4:11 AM [facility] Monocyte Absolute 0.08(L) 0.15 - 1.00 x10E9/L 02/03/2025 4:11 AM [facility] Eosinophil Absolute 0.03 0.00 - 0.60 x10E9/L 02/03/2025 4:11 AM [facility] Basophil Absolute 0.03 0.00 - 0.13 x10E9/L 02/03/2025 4:11 AM [facility] RBC Morphology REVIEWED 02/03/2025 4:11 AM [facility] Schistocytes FEW(A) (none) 02/03/2025 4:11 AM [facility] Large Platelets PRESENT(A) (none) 4:11 AM [employer] [facility] Blood BLOOD SPECIMEN / Unknown Venipuncture / Unknown 02/03/2025 3:12 AM [employer] 02/03/2025 3:17 AM [employer] us Trenton Morgan MD LAB - HEMATOLOGY ORDERABLES Final Result Performing Organization Address City/[facility]/ZIP Co de Phone Number [address] [address], [place] [phone] * PHOSPHORUS BLOOD (02/03/2025 3:12 AM [employer]) Phosphorus 4.3 2.9 - 5.1 mg/dL 02/03/2025 3:50 AM [employer] [facility] Blood BLOOD SPECIMEN / Unknown Venipuncture / Unknown 02/03/2025 3:12 AM [employer] 02/03/2025 3:17 AM [employer] Trenton Morgan MD LAB - CHEMISTRY ORDERABLES F inal Result Performing Organization Address [facility] Co de Phone Number [address] [address], [place] [phone] * MAGNESIUM BLOOD (02/03/2025 3:12 AM [employer]) Magnesium 2.1 1.6 - 2.6 mg/dL 02/03/2025 3:50 AM [employer] [facility] Blood BLOOD SPECIMEN / Unknown Venipuncture / Unknown 02/03/2025 3:12 AM [employer] 02/03/2025 3:17 AM [employer] us Trenton Morgan MD LAB - CHEMISTRY ORDERABLES F inal Result Performing Organization Address City/[facility]/ZIP Co de Phone Number [address] [address], [place] [phone] * (ABNORMAL) LIPID PROFILE (02/03/2025 3:12 AM [employer]) Cholesterol Total 204(H) <200 mg/dL 02/03/2025 3:50 AM [facility] HDL 71 >40 mg/dL 02/03/2025 3:50 AM [facility] Comment: ATP III Classification of HDL Cholesterol: <40 mg/dL: Considered a major risk factor. >60 mg/dL: Considered a negative risk factor. LDL Calculated 121(H) <100 mg/dL 02/03/2025 3:50 AM [facility] Comment: ATP III Classification of LDL Cholesterol: <100 mg/dL: Optimal 100 - 129 mg/dL: Near Optimal/Above Optimal 130 - 159 mg/dL: Borderline High 160 - 189 mg/dL: High >190 mg/dL: Very High LDL is calculated using the Friedewald equation. Triglycerides 61 <150 mg/dL 02/03/2025 3:50 AM [facility] Comment: ATP III Classification of Triglycerides: <150 mg/dL: Normal 150 - 199 mg/dL: Borderline High 200 - 400 mg/dL: High >500 mg/dL: Very High Blood BLOOD SPECIMEN / Unknown Venipuncture / Unknown 02/03/2025 3:12 AM [employer] 02/03/2025 3:17 AM [employer] us Trenton Morgan MD LAB - CHEMISTRY ORDERABLES F inal Result [facility] [address] [place] [address], [facility] [phone] * CT Angio Brain And Neck (02/02/2025 6:31 PM [employer]) Anatomical Region Laterality Modality Head Computed Tomogra phy 02/02/2025 6:46 PM DIRECTOR ENTERPRISE SALES Addenda Addendum by Chris Ross MD on 02/02/2025 9:59 PM DIRECTOR ENTERPRISE SALES Final results discussed with Dr. Oh by Dr. Sandra Pinzon on 02/02/2025 at 9:35 PM. Verbal readback confirmed receipt and understanding of items discussed. > Dictated by Sandra Pinzon MD 02/02/2025 9:34 PM > Dictated by Gandy Dancer I, Chris Ross MD have personally reviewed and interpreted this examination/study. > Interpreting Provider: Chris Ross MD on 02/02/2025 9:57 PM Impressions 02/02/2025 9:26 PM DIRECTOR ENTERPRISE SALES IMPRESSION: 1.The final report includes a finding which was not originally reported by the resident. 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 See text for details. 2.No acute intracranial hemorrhage or abnormal enhancement. 3.Otherwise normal CT angiography of head and neck. No large arterial occlusions or significant stenoses identified in the head or neck. The report is dictated by Get Gamboa MD, (cardiac cath lab radiology technologist) > Dictated by Get Gamboa MD 02/02/2025 6:46 PM > Dictated by Gandy Dancer I, Chris Ross MD have personally reviewed and interpreted this examination/study. > Interpreting Provider: Chris Ross MD on 02/02/2025 9:26 PM Narrative 02/02/2025 9:26 PM DIRECTOR ENTERPRISE SALES PROCEDURE: CT ANGIO BRAIN AND NECK, DATE/TIME OF EXAM: 02/02/2025 6:32 PM, LOCATION [facility] INDICATION: G44.209: Acute non intractable tension-type headache ADDITIONAL CLINICAL INFORMATION: Ordering Provider Reason For Exam: headache Technologist Note: Additional: EXAMINATION: 1. CT ANGIOGRAPHY OF THE HEAD WITHOUT AND WITH CONTRAST 2. CT ANGIOGRAPHY OF THE NECK WITH CONTRAST TECHNIQUE: CT of the head was performed without contrast according to standard protocol. Then CT angiography of the head and neck was obtained after the uneventful administration of intravenous contrast. 3-D volume rendered and rotating MIP postprocessing was performed by the technologist and sent to the workstation for review. CONTRAST: IOPAMIDOL 76 % IV SOLN:75 mL COMPARISON: No prior study is available for comparison at the time of this dictation. NON-ANGIOGRAPHIC FINDINGS: No acute intracranial hemorrhage is identified There is a CSF density collection within the posterior fossa, likely representing an arachnoid cyst internal septae measuring about 3.1 x 6.2 x 3.0 cm in AP, transverse and cephalocaudal dimensions. The basal cisterns are patent. No mass effect or midline shift is seen. 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 The ramos-white matter differentiation otherwise appears normal. The ventricles are of normal size, shape, and morphology. There are no visible white matter changes. The postcontrast images do not demonstrate abnormal enhancement in the brain. The visualized portions of the orbits, paranasal sinuses, and mastoids appear normal. No acute calvarial fracture is identified. There is no scalp swelling. No soft tissue abnormalities are identified in the neck. The imaged upper lungs are clear and the imaged portion of mediastinum is unremarkable. The bone window images demonstrate normal symmetric appearance of the temporomandibular joints and mild degenerative changes of the cervical spine, but no fracture or suspicious intrinsic bony lesion is identified. ANGIOGRAPHIC FINDINGS: NECK: There is atherosclerotic disease of the aortic arch. There is a common origin of the innominate and left common carotid arteries from the aortic arch. The innominate artery and both subclavian arteries appear normal. The right common and internal carotid arteries as well as the right carotid bifurcation are patent. The left common and internal carotid arteries as well as the left carotid bifurcation are patent. The cervical vertebral arteries are patent. The right vertebral artery is dominant. HEAD: The distal internal carotid arteries are patent. The anterior cerebral arteries are patent. The middle cerebral arteries are patent. The posterior cerebral arteries are patent with origin of the right posterior cerebral artery. The distal vertebral arteries are patent. The basilar artery is patent patent. No aneurysms or intracranial arterial stenosis is identified. There is asymmetry opacification of left cavernous sinus (series 5, image 59). There is a punctate extension of contrast from the proximal cavernous portion of left internal card artery into the cavernous sinus suggestive of a left carotid-cavernous fistula (series 5, images 59-61). The superior ophthalmic vein is not enlarged. The remainder of the dural sinuses are normally opacified. There is no evidence of dural sinus Procedure Note Chris Ross MD - 02/02/2025 PROCEDURE: CT ANGIO BRAIN AND NECK, DATE/TIME OF EXAM: 02/02/2025 6:32PM, LOCATION [facility] INDICATION: G44.209: Acute non intractable tension-type headache ADDITIONAL CLINICAL INFORMATION: Ordering Provider Reason For Exam: headache Technologist Note: Additional: EXAMINATION: 1. CT ANGIOGRAPHY OF THE HEAD WITHOUT AND WITH CONTRAST 2. CT ANGIOGRAPHY OF THE NECK WITH CONTRAST TECHNIQUE: CT of the head was performed without contrast according to standard protocol. Then CT angiography of the head and neck was obtained after the uneventful administration of intravenous contrast. 3-D volume rendered and rotating MIP postprocessing was performed by thetechnologist and sent to the workstation for review. CONTRAST: IOPAMIDOL 76 % IV SOLN:75 mL COMPARISON: No prior study is available for comparison at the time ofthis dictation. 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 The basal cisterns are patent. No masseffect or midline shift is seen. 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 The ramos-white matter differentiation otherwise appears normal. The ventricles are of normal size, shape, and morphology. There are no visible white matter changes. The postcontrast images do not demonstrate abnormal enhancement in the brain. The visualized portions of the orbits, paranasal sinuses, and mastoids appear normal. No acute calvarial fracture is identified. There is no scalp swelling. No soft tissue abnormalities are identified in the neck. The imagedupper lungs are clear and the imaged portion of mediastinum is unremarkable. The bone window images demonstrate normal symmetric appearance of the temporomandibular joints and mild degenerative changes of the cervical spine, but no fracture or suspicious intrinsic bony lesion isidentified. ANGIOGRAPHIC FINDINGS: NECK: There is atherosclerotic disease of the aortic arch. There is a common origin of the innominate and left common carotid arteries from theaortic arch. The innominate artery and both subclavian arteries appear normal.The right common and internal carotid arteries as well as the right carotid bifurcation are patent. The left common and internal carotid arteries as well as the left carotid bifurcation are patent. The cervical vertebral arteries are patent. The right vertebral artery is dominant. HEAD: The distal internal carotid arteries are patent. The anterior cerebral arteries are patent. The middle cerebral arteries are patent. The posterior cerebral arteries are patent with origin of the right posterior cerebral artery. The distal vertebral arteries are patent. The basilar artery is patent patent. No aneurysms or intracranial arterial stenosis is identified. There is asymmetry opacification of left cavernous sinus (series 5,image 59). There is a punctate extension of contrast from the proximalcavernous portion of left internal card artery into the cavernous sinus suggestiveof a left carotid-cavernous fistula (series 5, images 59-61). The superior ophthalmic vein is not enlarged. The remainder of the dural sinuses are normally opacified. There is no evidence of dural sinus IMPRESSION: 1.The final report includes a finding which was not originally reportedby the resident. 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 See text for details. 2.No acute intracranial hemorrhage or abnormal enhancement. 3.Otherwise normal CT angiography of head and neck. No large arterial occlusions or significant stenoses identified in the head or neck. The report is dictated by Get Gamboa MD, (cardiac cath lab radiology technologist) > Dictated by Get Gamboa MD 02/02/2025 6:46 PM > Dictated by Gandy Dancer I, Chris Ross MD have personally reviewed and interpreted this examination/study. > Interpreting Provider: Chris Ross MD on 02/02/2025 9:26 PM us Paul Flaherty MD CT ORDERABLES Edited Result - Final * COMPREHENSIVE METABOLIC PANEL (02/02/2025 4:42 PM DIRECTOR EN[employer]ISE SALES) BUN 15 7 - 26 mg/dL 02/02/2025 5:20 PM [facility] Creatinine 0.64 0.56 - 0.96 mg/dL 02/02/2025 5:20 PM [facility] Sodium 139 136 - 145 mmol/L 02/02/2025 5:20 PM [facility] Potassium 3.8 3.5 - 4.5 mmol/L 02/02/2025 5:20 PM [facility] Chloride 106 98 - 107 mmol/L 02/02/2025 5:20 PM [facility] CO2 27 22 - 29 mmol/L 02/02/2025 5:20 PM [facility] Glucose 78 70 - 99 mg/dL 02/02/2025 5:20 PM [facility] Calcium 8.7 8.4 - 10.2 mg/dL 02/02/2025 5:20 PM [facility] Protein Total 7.0 6.0 - 8.3 g/dL 02/02/2025 5:20 PM [facility] Albumin 4.3 3.4 - 5.0 g/dL 02/02/2025 5:20 PM [facility] Bilirubin Total 0.6 0.2 - 1.2 mg/dL 02/02/2025 5:20 PM [facility] Alkaline Phosphatase 58 40 - 150 U/L 02/02/2025 5:20 PM [facility] ALT 22 5 - 55 U/L 02/02/2025 5:20 PM [facility] AST 20 5 - 34 U/L 02/02/2025 5:20 PM [facility] Anion Gap 6 6 - 16 02/02/2025 5:20 PM [facility] BUN/Creatinine Ratio 23 7 - 23 02/02/2025 5:20 PM [facility] Osmolality Calculated 288 275 - 295 mOsm/kg 02/02/2025 5:20 PM [facility] Albumin/Globulin Ratio 1.6 1.1 - 2.3 02/02/2025 5:20 PM [facility] eGFR by CKD-EPI >90 >=90 mL/min/1.7 3 m2 02/02/2025 5:20 PM [facility] Comment:Estimated Glomerular Filtration Rate (eGFR) calculated using the CKD-EPI Creatinine Equation (2020), per the National Kidney Foundation and [place] [employer] Nephrology recommendations. Blood BLOOD SPECIMEN / Unknown Venipuncture / Unknown 02/02/2025 4:42 PM [employer]OR [employer] 02/02/2025 4:52 PM [facility] us Paul Flaherty MD LAB - CHEMISTRY ORDERABLES Fin al Result [facility] [address] [place] [address], [facility] [phone] from Last 3 Months Insurance AGN[employer] Advance Directives * Full Code (Latest Code Status on File) Date Activated Date Inactivated Comments 02/03/2025 2:57 AM 02/04/2025 1:54 PM Care Teams Book Jacket Cover Machine Operator Relationship Specialty [place] [address] [facility] [address] [place] [phone] PCP - General 03/14/18
--- OUTSIDE RECORDS SUMMARY | 2025-03-05 12:01 | XMS_ITS | Encounter Summary ---
Author Organization [facility] Address [address] [facility] [address] Care Team Providers Care Commercial Driver'S License Driver Name Role Phone Michael Holloway MD Primary Care Pr ovider Encounter Details Date Type Department Care Team (Late st Contact Info) Description 11/12/2024 Telephone [facility] - Dermatology [address] [place] [phone] None, Physician [address] [place] [address] Social History Tobacco Use Types Packs/Day Years Used Date Smoking Tobacco: Never Smokeless Tobacco: Never Comments Unknown Sex and Gender Information Value Date Recorded Sex Assigned at Female 05/18/2021 2:52 PM WARDROBE TECHNICIAN Legal Sex Female 5:15 PM WARDROBE TECHNICIAN Gender Identity Female 05/18/2021 2:52 PM WARDROBE TECHNICIAN Sexual Orientation Straight 05/18/2021 2: 52 PM WARDROBE TECHNICIAN documented as of this encounter Miscellaneous Notes * Telephone Encounter - Latanya Li - 11/12/2024 2:42 PM CDT Called pt to reschedule apt with Dr. Lees. Pt did not answer. Left detailed message, and a call back number. documented in this encounter Plan of Treatment Upcoming Encounters Date Type Department Care Team (Late st Contact Info) Description 06/26/2025 10:00 AM CDT Office Visit [facility] - Neurology [address] [place] [address], [place] [phone] Lyly Gavin APRN-ALEJANDRO [address] [place] [address] [address] [place] [phone] 01/14/2026 1:10 PM CDT Office Visit [facility] - Dermatology [address] [place] [address], [place] [phone] Tera Lees MD [address] [place] [address] [address] [place] [phone] documented as of this encounter Visit Diagnoses Not on filedocumented in this encounter Care Teams Commercial Driver'S License Driver Relationship Specialty [place] [address] [facility] [address] [facility] [phone] PCP - General 03/14/18 documented as of this encounter
--- OUTSIDE RECORDS SUMMARY | 2025-03-05 12:01 | XMS_ITS | Clinical Summary ---
Author Organization [facility] Address [address] [place] [address] Care Team Providers Care Cake Mixer Name Role Phone Michael Holloway MD Primary Care Pr ovider Allergies No known active allergies Medications naproxen (NAPROSYN) 500 mg tabletIndication s:Pain Take 1 tablet (500 mg total) by mouth 2 (two) times a day with meals. 20 tablet 12/29/2017 Active AMOXICILLIN 500 mg capsule 10/30/2017 Active aspirin 81 mg tablet Take 81 mg by mouth. Active diclofenac DR (VOLTAREN) 75 mg EC tablet 10/11/2017 Active escitalopram (LEXAPRO) 20 mg tablet 02/04/2016 Active AFLURIA QUAD 4399-3393, PF, 60 mcg/0.5 mL syringe ADM 0.5ML IM UTD 0 12/11/2017 Active flu vaccine [id number],4 yr up, (FLUVIRIN 1045-0762) 45 mcg (15 mcg x 3)/0.5 mL suspension 01/11/2017 Active TRIAMTERENE-HYDR OCHLOROTHIAZIDE 37.5-25 mg per capsule 11/22/2017 Active valACYclovir (VALTREX) 1 gram tablet 03/20/2017 Active aspirin 81 mg tablet Take 81 mg by mouth daily. 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 Melanocytic nevi of lower extremity or hip 03/21 Melanocytic nevi of trunk 03/21/2017 Neoplasm of uncertain behavior of skin 7 Melanocytic nevi of unspecif ied upper limb, including shoulder 03/21/2017 Personal history of other malignant neoplasm of skin 01/20/2015 Situational mixed anxiety and depressive disorde r 06/18/2012 Essential hypertension 07/13/2011 Pure hypercholesterolemia 07/13/2011 History of basal cell carcinoma of skin 04/21/19 11 Surgical History Surgery Date Site/Laterality Comments FOOT SURGERY plantar fasciitis Medical History Medical History Date Comments Hypertension Family History Medical History Relation Name Comments Heart disease Neg Hx Hypertension Neg Hx Social History Tobacco Use Types Packs/Day Years Used Date Smoking Tobacco: Never Smokeless Tobacco: Never Alcohol Use Standard Drinks/Week Comments No 0 (1 standard drink = 0.6 oz pur e alcohol) Personal Safety Answer Date Recorded Getting School Help Needed Not on file 06/16 Comments No Sex and Gender Information Value Date Recorded Sex Assigned at Not on file Legal Sex Female 6:36 PM CITY SANITARIAN Gender Identity Not on file Sexual Orientation Not on file Last Filed Vital Signs Vital Sign Reading Time Taken Comments Blood Pressure 137/87 07/26/2018 9:27 AM CDT Pulse 65 07/26/2018 9:27 AM CDT Temperature 36.4 C (97.6 F) 12/29/2017 8:31 AM CDT Respiratory Rate 16 12/29/2017 8:31 AM CDT Oxygen Saturation - - Inhaled Oxygen Concentration - - Weight 91.2 kg (201 lb) 07/26/2018 9:27 AM CDT Height 180.3 cm (5' 11) 07/26/2018 9:27 AM CDT Body Mass Index 28.03 07/26/2018 9:27 AM CDT Plan of Treatment Not on file Insurance [facility] Care Teams Cake Mixer Relationship Specialty [place] [address] [place] [address] [place] [id number] PCP - General 12/29/17
--- OUTSIDE RECORDS SUMMARY | 2025-03-05 12:01 | XMS_ITS | Encounter Summary ---
Author Organization [facility] Address [address] [place] [address] Care Team Providers Care Braider Setter Name Role Phone Michael Holloway MD Primary Care Pr ovider Encounter Details Date Type Department Care Team (Latest Contact Info) Description 07/09/2003 Outpatient [facility]ER PRIMIGRAVID-ANTEPART [facility] (Primary Dx) Social History Tobacco Use Types Packs/Day Years Used Date Smoking Tobacco: Never Assessed Comments Unknown Sex and Gender Information Value Date Recorded Sex Assigned at Not on file Legal Sex Female 2:57 AM HYDRO GENERATION SUPERVISOR Gender Identity Not on file Sexual Orientation Not on file documented as of this encounter Plan of Treatment Upcoming Encounters Date Type Department Care Team (Late st Contact Info) Description 03/05/2025 2:30 PM HYDRO GENERATION SUPERVISOR Office Visit [facility] Primary Care [place] [address] [place] [phone] [place] [address] [place] [phone] 04/21/2025 1:30 PM HYDRO GENERATION SUPERVISOR Office Visit [facility] Primary Care [place] [address] [place] [phone] [place] [address] [place] [phone] documented as of this encounter Visit Diagnoses Diagnosis Elderly primigravida, antepartum- Primary documented in this encounter Care Teams Braider Setter Relationship Specialty [place] [address] [facility] [address] [place] [phone] PCP - General Internal Medicine 08/22/17 documented as of this encounter
--- OUTSIDE RECORDS SUMMARY | 2025-03-05 12:01 | XMS_ITS | Encounter Summary ---
Author Organization [facility] Address [address] [facility] [place] [address] Care Team Providers Care Packaging Technician Name Role Phone Michael Holloway MD Primary Care Pr ovider Encounter Details Date Type Department Care Team (Late st Contact Info) Description 02/03/2025 Ophth Exam [facility] - Ophthalmology [address] [place] [phone] Tito Tenorio MD [address] [place] [address] Social History Tobacco Use Types Packs/Day Years Used Date Smoking Tobacco: Never Smokeless Tobacco: Never Alcohol Use Standard Drinks/Week Comments Yes 0 (1 standard drink = 0.6 oz pur e alcohol) AUDIT-C Answer Date Recorded Q1: How often do you have a drink containing alc ohol? Monthly or less 02/03/2025 Q2: How many drinks containi ng alcohol do you have on a typical day when you are drinking? 1 or 2 02/03/2025 Q3: How often do you have si x or more drinks on one occasion? Never 02/03/2025 Overall Financial Resource Strain (CARDIA) Answe r Date Recorded How hard is it for you to pa y for the very basics like food, housing, medical care, and heating? Not hard at all 02/03/2025 [facility] [place] of Occupat ional Health - Occupational Stress [...] any time in the past 12 m [facility], were you homeless or living in a long term (including now)? No 02/03/2025 Comments Unknown Sex and Gender Information Value Date Recorded Sex Assigned at Female 05/18/2021 2:52 PM FAMILY INDEPENDENCE CASE MANAGER Legal Sex Female 5:15 PM FAMILY INDEPENDENCE CASE MANAGER Gender Identity Female 05/18/2021 2:52 PM FAMILY INDEPENDENCE CASE MANAGER Sexual Orientation Straight 05/18/2021 2: 52 PM FAMILY INDEPENDENCE CASE MANAGER documented as of this encounter Functional Status * Functional and Cognitive Status Question Answer Date of Assessment Author Is person deaf or have reji us hearing difficulty? No 02/03/2025 3:53 PM FAMILY INDEPENDENCE CASE MANAGER Gabby Juarez RN Is person blind or have seri ous difficulty seeing? No 02/03/2025 3:53 PM FAMILY INDEPENDENCE CASE MANAGER Gabby Juarez RN Does person have serious dif ficulty walking/climbing stairs? No 02/03/2025 3:53 PM FAMILY INDEPENDENCE CASE MANAGER Bismark uJarez, RN Does person have difficulty dressing/bathing? No 02/03/2025 3:53 PM FAMILY INDEPENDENCE CASE MANAGER Gabby Juarez RN Does person have difficulty doing errands alone? No 02/03/2025 3:53 PM Gabby Lucio RN Does person have difficulty concentrating/remembering/making decisions? No 02/03/2025 3:53 PM Gabby Lucio RN * Question Answer Date of Assessment Author Q1: How often do you have a drink containing alcohol? Monthly or less 02/03/2025 3:29 AM Mariaelena Baer RN Q2: How many drinks containing alcohol do you have on a typical day when you are drinking? 1 or 2 02/03/2025 3:29 AM Mag shelli Baer RN Q3: How often do you have six or more drinks on one occasion? Never 02/03/2025 3:29 AM Mariaelena Baer RN * AUDIT-C Score Answer Date of Assessment Author 1 02/03/2025 3:29 AM Mariaelena Baer RN * Is person deaf or have serious hearing difficulty? Answer Date of Assessment Author No 02/03/2025 3:53 PM John Lucio RN * Is person blind or have serious difficulty seeing? Answer Date of Assessment Author No 02/03/2025 3:53 PM John Lucio RN * Does person have serious difficulty walking/climbing stairs? Answer Date of Assessment Author No 02/03/2025 3:53 PM John Lucio RN * Does person have difficulty dressing/bathing? Answer Date of Assessment Author No 02/03/2025 3:53 PM John Lucio RN * Does person have difficulty doing errands alone? Answer Date of Assessment Author No 02/03/2025 3:53 PM John Lucio RN documented as of this encounter Mental Status * Does person have difficulty concentrating/remembering/making decisions? Answer Entry Date Author No 02/03/2025 3:53 PM John Lucio RN documented in this encounter Plan of Treatment Upcoming Encounters Date Type Department Care Team (Late st Contact Info) Description 06/26/2025 10:00 AM CDT Office Visit [facility] - Neurology [address] [facility] [place] [address] Lyly Gavin APRN-PATENT LAW SPECIALIST [address] [facility] [address] [place] [address] 01/14/2026 1:10 PM CDT Office Visit [facility] - Dermatology [address] [place] [address], [place] [phone] Tera Lees MD [address] [place] [address] [address] [place] [phone] documented as of this encounter Visit Diagnoses Not on filedocumented in this encounter Care Teams Packaging Technician Relationship Specialty [place] [address] [facility] [address] [place] [phone] PCP - General 03/14/18 documented as of this encounter
== END 2025-03-05 10:34 | disposition home or self-care (01) ==
LOC: ANHFOHIMG 10:35
PROVIDERS: Visit Provider Obstetrics & Gynecology Gynecology
DX: R92.8 Other abnormal and inconclusive findings on diagnostic imaging of breast (principal)
CPT/HCPCS: 76642; 77061; 77065; G0279